=== PATIENT | male | born 1950 | race Caucasian/White ===

== ENCOUNTER 2018-02-15 20:34 | Emergency (ER) | payer MEDICARE, OTHER, SELFPAY ==
[2018-02-15 20:34] VITALS: BP 156/94; PULSE 79; RESP 16; TEMP 36.6; O2SAT 96; BMI 25.7
--- NOTE | 2018-02-15 21:02 | ED.VISSUMM ---
- ER Visit Summary Date of Service: 02/15/18 Chief Complaint: Tripped and fell with forehead and nasal bridge lacerations. History of Present Illness: The patient is a 67 M has medical history of hypertension. Currently on no blood thinner medications. He tripped over the new puppy try to prevent injuring the puppy and hit his head on the counter. No LOC. He did cause a laceration to his forehead and the bridge of his nose. Denies any significant headache or neck pain. No visual changes. No trouble moving his arms or legs. No numbness. Denies other injuries. Physical Examination: Older male no acute distress. Vital signs stable afebrile. H EENT exam is 2-3 inch for a laceration involving skin and subcu tissue. There is dried blood and minimal active bleeding. He also has a laceration to the bridge of his nose. But no gross bony deformity no significant pain. Pupils round reactive light. Extra motions are intact. No dental injury. No malocclusion. Is a small contusion on his right cheek. Scalp is unremarkable. C-spine nontender normal range of motion to his neck. Lungs clear to auscultation bilaterally. Heart regular rate and rhythm no murmur. Chest wall nontender. Abdomen soft nontender. Normal bowel sounds no peritoneal signs. Pelvic girdle intact. He is moving all 4 extremities. Neurovascular intact. Nontender. Back exam nontender. Neurologically is awake alert no focal motor or sensory deficits. GCS of 15. Test Results: None Emergency Department Course and Treatment: Let will be applied to both wounds. Treatment Plan: Then subcu lidocaine was applied to both lacerations. Right forehead laceration approximately 5 cm in length. The skin and subcu tissue. No bony step-off. Washed with saline and irrigated. Also with Shur-Clens. Closed using 6 simple interrupted 5-0 Ethilon sutures. Proper hemostasis wound closure was obtained. Next Nasal bridge laceration is 2 cm. Explored, cleaned with Shur-Clens and washed with saline. Local anesthetic with lidocaine. Closed using 3 simple interrupted 5-0 Ethilon sutures proper hemostasis wound closure obtained patient tolerated procedure well. Post laceration repairs patient remains neurologically intact. They are warned of close head injury precautions. And wound care. Suture removal in 7-10 days. Disposition: Discharge Impression: Tripped and fell over their puppy Acute closed head injury Acute forehead laceration with ER repair of 5-6 cm. Nasal bridge laceration of 2 cm with ER repair This note was generated with [employer] dictation software. It may contain incorrect words, spelling, and punctuation that were not noted in review of the chart prior to signing ED Disposition - Plan for ED Patient: Disposition: Home or Assisted Living Chief Complaint: Laceration Instructions: ED Head Injury Closed, ED Laceration Facial Sutr Tape Referrals: Amari Benz III, MD [Primary Care Provider] - 7 Days for suture removal Additional Instructions: Dental for pain. Return if severe headache, intractable vomiting or not acting himself. Ice to both wounds. Keep the wounds clean. Apply antibiotic ointment daily. Suture removal in 1 week. Watch for any signs of infection.
--- NOTE | 2018-02-15 21:06 | ED.DEP ---
ED Disposition - Plan for ED Patient: Disposition: Home or Assisted Living Chief Complaint: Laceration Instructions: ED Laceration Facial Sutr Tape, ED Head Injury Closed Referrals: Amari Benz III, MD [Primary Care Provider] - 7 Days for suture removal Additional Instructions: Dental for pain. Return if severe headache, intractable vomiting or not acting himself. Ice to both wounds. Keep the wounds clean. Apply antibiotic ointment daily. Suture removal in 1 week. Watch for any signs of infection.
[2018-02-15] MEDS: Lidocaine/Epi/Tetracaine 50 ML 1 APPLIC TOPICAL (21:59)
[2018-02-15] MEDS: Diphth,Pertuss(Acell),Tet Vac 0.5 ML Vial IM (22:42)
[2018-02-15 22:52] VITALS: RESP 16
== END 2018-02-15 23:09 | disposition home or self-care (01) ==
PROVIDERS: Emergency Provider Emergency Medicine; Family Provider Family Medicine; PCP Family Medicine
DX: S01.81XA Laceration without foreign body of other part of head, initial encounter (principal); S01.21XA Laceration without foreign body of nose, initial encounter; W01.0XXA Fall on same level from slipping, tripping and stumbling without subsequent striking against object, initial encounter; Y93.9 Activity, unspecified; Y92.9 Unspecified place or not applicable; I10 Essential (primary) hypertension; Z79.82 Long term (current) use of aspirin; Z79.899 Other long term (current) drug therapy
CPT/HCPCS: 12014; 90471; 90715; 99283

== ENCOUNTER → 2019-05-01 08:58 | Outpatient (CLI) | payer MEDICARE, OTHER, SELFPAY ==
[2019-05-01 10:34] LABS: Anion Gap 9 (5-15); BUN 26 mg/dL (7-18); BUN/Creat Ratio 18.1 RATIO (10-20); Chloride 102 mmol/L (98-107); Creatinine, Serum 1.44 mg/dL (0.70-1.30); EST Glomerular Filtration Rate 52 mL/min (>60); Est Glom Filt Rate - Afr Amer 63 mL/min (>60); Glucose 104 mg/dL (74-106); PSA,Total - Annual Screen 0.61 ng/mL (0.00-4.00); Potassium 3.5 mmol/L (3.5-5.1); Sodium Level 139 mmol/L (136-145)
== END ==
PROVIDERS: Family Provider Family Medicine; PCP Family Medicine; Referring Provider Urology; Visit Provider Urology
DX: Z12.5 Encounter for screening for malignant neoplasm of prostate (principal); N31.9 Neuromuscular dysfunction of bladder, unspecified
CPT/HCPCS: 36415; 80048; 84153; G0103

== ENCOUNTER → 2020-11-21 09:29 | Outpatient (CLI) | payer MEDICARE, OTHER, SELFPAY ==
[2020-11-21 10:05] LABS: Hematocrit 44.3 % (40-54); Mean Corp Hgb Conc 33.9 g/dL (32-36); Mean Corpuscular Hgb 30.5 pg (27.0-32.0); Mean Corpuscular Volume 90.2 fL (80-94); Mean Platelet Vol. 9.8 fl (6.2-12.0); Platelet Count 300 K/mm3 (150-450); RBC Distribution Width CV 12.3 % (11.6-14.6); RBC Distribution Width SD 40.5 fl (35.1-43.9); Red Blood Count 4.91 M/mm3 (4.6-6.2); White Blood Count 5.7 K/mm3 (4.4-11.0)
[2020-11-21 10:37] LABS: Anion Gap 4 (5-15); BUN 23 mg/dL (7-18); BUN/Creat Ratio 18.4 RATIO (10-20); Chloride 107 mmol/L (98-107); Creatinine, Serum 1.25 mg/dL (0.70-1.30); EST Glomerular Filtration Rate 61 mL/min (>60); Est Glom Filt Rate - Afr Amer 74 mL/min (>60); Glucose 67 mg/dL (74-106); PSA,Total- Diagnostic 0.54 ng/mL (0.0-4.0); Potassium 4.1 mmol/L (3.5-5.1); Sodium Level 138 mmol/L (136-145)
== END ==
PROVIDERS: PCP Family Medicine; Referring Provider Urology; Visit Provider Urology
DX: N31.2 Flaccid neuropathic bladder, not elsewhere classified (principal)
CPT/HCPCS: 36415; 80048; 84153; 85027

== ENCOUNTER 2021-01-02 12:47 | Outpatient (RCR) | payer MEDICARE, OTHER, SELFPAY ==
[2021-01-02] MEDS: COVID-19 VACC, MRNA(PFIZER)/PF 30 MCG/0.3 ML SYRINGE IM (18:35)
[2021-01-23] MEDS: COVID-19 VACC, MRNA(PFIZER)/PF 30 MCG/0.3 ML SYRINGE IM (17:51)
== END 2021-01-02 23:59 ==
LOC: IMMUN 12:47
PROVIDERS: PCP Family Medicine; Visit Provider Family Medicine
DX: Z23 Encounter for immunization (principal)
CPT/HCPCS: 0001A; 0002A; 91300

== ENCOUNTER → 2021-09-30 09:43 | Outpatient (CLI) | payer MEDICARE, OTHER, SELFPAY ==
--- NOTE | 2021-09-30 09:45 | RDU_ITS ---
Reason For Study: Renal artery stenosis Right Renal Artery Left Renal Artery Right renal artery ostium Left renal artery ostium 189.8/41.3 215.4/58.5 RSV/EDV. PSV/EDV. Right renal artery proximal Left renal artery proximal PSV/EDV 343.2/69.2 PSV/EDV. 168.3/34.9 . Right renal artery mid 292.1/55.3 Left renal artery mid 122.5/32 PSV/EDV. PSV/EDV . Right renal artery distal Left renal artery distal 56.4/17.1 133.9/46.2 PSV/EDV. PSV/EDV. Right RAR 4.00. Left RAR 2.21. Right Renal Parenchyma Left Renal Parenchyma Upper Pole Medula 29.1/8.1 PSV/EDV. Left upper pole medulla 20.8/6.7 Right upper pole medulla EDR 0.28 . PSV/EDV . Right upper pole medulla R.I. Left upper pole medulla EDR 0.32 . 0.72 . Left upper pole medulla R.I. 0.68 . Upper Danny Cortx 15.9/6.1 PSV/EDV. UP Cortex 11.6/5.5 PSV/EDV. Right upper pole cortex EDR 0.38 . Left upper pole cortex EDR 0.47 . Right upper pole cortex R.I. 0.62 . Left upper pole cortex R.I. 0.53 . Right lower Pole medulla 22/7.3 Left lower Pole medulla 19.6/7.3 PSV/EDV . PSV/EDV . Right lower pole medulla EDR 0.33 . Left lower pole medulla EDR 0.37 . Right lower pole medulla R.I. Left lower pole medulla R.I. 0.63 . 0.67 . Lower Pole Cortx 9.8/4.2 PSV/EDV. Lower Pole Cortex 17.1/6.7 PSV/EDV. Left lower pole cortex EDR 0.43 . Right lower pole cortex EDR 0.39 . Left lower pole cortex R.I. 0.57 . Right lower pole cortex R.I. 0.61 . Left Renal Hilar Right Renal Hilar LT Hilar avg 57.6/17.1 PSV/EDV . Right Hilar avg 46.4/18.5 PSV/EDV. Left hilar acceleration time 60 Right hilar acceleration time 30 m/sec. m/sec. Left Renal Dimensions Right Renal Dimensions Left kidney size 10.37 cm . Right kidney size 11.92 cm . Left cortical dimension 1.56 cm . Right cortical dimension 1.83 cm . Aorta Proximal abdominal aorta 2.51 x 2.51 cm . Proximal abdominal aorta peak systolic velocity is 85.7 cm/sec . Distal abdominal aorta 1.38 x 1.37 cm . Distal abdominal aorta peak systolic velocity is 133.7 cm/sec . VL/Renal Artery Duplex Ultrasound Interpretation Summary Maximal aortic diameter proximally at 2.51 x 2.51 cm Greater than 60% stenosis right renal artery Right renal length maintained at 11.92 cm Less than 60% stenosis left renal artery Left renal length maintained at 10.37 cm Ordering Physician: Wilfred Benz Referring Physician: Madeline Tadeo Performed By: Emily Quiroz RVT
== END ==
PROVIDERS: PCP Registered Nurse; Referring Provider Surgery; Visit Provider Surgery
DX: I70.1 Atherosclerosis of renal artery (principal)
CPT/HCPCS: 93975

== ENCOUNTER → 2021-10-07 09:36 | Outpatient (CLI) | payer MEDICARE, OTHER, SELFPAY ==
--- NOTE | 2021-10-07 09:37 | CDU_ITS ---
Reason For Study: carotid stenosis Rt. Velocities/BP Lt. Velocities/BP Prox CCA 60.4/17.3 cm/sec. Prox CCA 104.7/25.6 cm/sec. Mid CCA 63.0/14.7 cm/sec. Mid CCA 103.6/24.5 cm/sec. Dist CCA 48.6/12.1. cm/sec. Dist CCA 67.3/19.0 cm/sec. Prox ICA 95.6/27.8 cm/sec. Prox ICA 61.9/15.7 cm/sec. Mid ICA 61.9/17.9 cm/sec. Mid ICA 70.6/22.3 cm/sec. Dist ICA 68.4/21.2 cm/sec. Dist ICA 61.9/22.3 cm/sec. Rt. ICA/CCA = 1.5. Lt. ICA/CCA = .7. Prox ECA 57.8/6.9 cm/sec. Prox ECA 79.4/9.1 cm/sec. Rt. Vert. 31.7/10.7 cm/sec. Lt. Vert. 45.4/14.6 cm/sec. Right Extracranial There is heterogeneous, irregular atherosclerotic plaque noted in the right common carotid artery. There is heterogeneous, irregular atherosclerotic plaque noted in the right internal carotid artery. There is intimal thickening but no significant atherosclerotic plaque noted in the right external carotid artery. Antegrade flow is noted in the right vertebral artery. Left Extracranial There is homogeneous, smooth atherosclerotic plaque noted in the left common carotid artery. There is heterogeneous, irregular atherosclerotic plaque noted in the left internal carotid artery. There is heterogeneous, irregular atherosclerotic plaque noted in the left external carotid artery. Antegrade flow is noted in the left vertebral artery. Procedure Carotid Duplex 26125. This is a Carotid Duplex examination using B-mode, color flow and specral Doppler. The exam was diagnostic. Exam performed in department. VL/Carotid Duplex Ultrasound Interpretation Summary Irregular calcific plaque with shadowing at the proximal right internal carotid artery with less than 50% stenosis Less than 50% stenosis right external carotid artery Irregular calcific plaque of the proximal left internal carotid artery with les s than 50% stenosis Less than 50% stenosis left external carotid artery Patent and antegrade vertebrals bilaterally Ordering Physician: Wilfred Benz Performed By: Jhonny So RVT
== END ==
PROVIDERS: PCP Registered Nurse; Referring Provider Surgery; Visit Provider Surgery
DX: I65.23 Occlusion and stenosis of bilateral carotid arteries (principal); R94.39 Abnormal result of other cardiovascular function study
CPT/HCPCS: 93880

== ENCOUNTER 2021-11-07 05:48 | Outpatient (CLI) | payer MEDICARE, OTHER, SELFPAY ==
--- NOTE | 2021-11-07 08:57 | STRESSREP ---
Stress Test Report Pharmacologic myocardial perfusion stress test. 71-year-old man with a history of chest pain. Medications metoprolol amlodipine. Stress protocol: Resting EKG demonstrates normal sinus rhythm with a rate of 53 bpm normal intervals are noted resting blood pressure is 140/98 mmHg. 0.4 mg of regadenoson was infused per usual protocol followed by rapid intravenous saline flush injection continuous EKG monitoring was performed. At rest there were no ST or T wave changes noted to suggest abnormal flow reserve and at peak infusion nonspecific ST changes were noted with did not meet the criteria for ischemia. No clinical angina was noted. The peak blood pressure was 150/86 mmHg. Myocardial perfusion protocol. 11.5 mCi of technetium 99m sestamibi was injected at rest. 0.4 mg of regadenoson was infused per usual protocol. At peak infusion 34.2 mCi of technetium 99m sestamibi was injected stress images were obtained stress and rest images were reconstructed and compared in the short axis vertical long and horizontal long axis. Gated images were also obtained. Perfusion SPECT analysis: Review of the stress images demonstrate normal uptake of tracer noted in all areas of the myocardium. The resting images similarly demonstrate normal uptake of tracer noted in all areas of the myocardium. No areas of reversibility are noted to suggest ischemia and no previous infarct was noted. Gated SPECT analysis: The gated ejection fraction was noted to be 62%. Conclusion: Normal pharmacologic myocardial perfusion stress test. Preserved ejection fraction.
== END 2021-11-07 23:59 | disposition short-term general hospital (02) ==
PROVIDERS: PCP Registered Nurse; Referring Provider Internal Medicine Cardiovascular Disease; Visit Provider Internal Medicine Cardiovascular Disease
DX: Z01.810 Encounter for preprocedural cardiovascular examination (principal); R07.9 Chest pain, unspecified
CPT/HCPCS: 78452; 93017; A9500; A4216; J2785

== ENCOUNTER 2021-11-27 09:34 | Outpatient (CLI) | payer MEDICARE, OTHER, SELFPAY ==
[2021-11-27 11:08] LABS: PSA,Total - Annual Screen 0.67 ng/mL (0.00-4.00)
== END 2021-11-27 23:59 | disposition short-term general hospital (02) ==
LOC: LAB 09:38
PROVIDERS: PCP Registered Nurse; Visit Provider Urology
DX: Z12.5 Encounter for screening for malignant neoplasm of prostate (principal)
CPT/HCPCS: 36415; 84153; G0103

== ENCOUNTER 2021-12-02 07:29 | Day surgery (SDC) | payer MEDICARE, OTHER, SELFPAY ==
[2021-12-02] VITALS (13 sets, daily range): BP systolic 107–145; BP diastolic 66–112; PULSE 59–77; RESP 16–18; TEMP 36.2–37.4; O2SAT 93–100; BMI 24.3
--- NOTE | 2021-12-02 08:02 | HP.PCM_ITS ---
History and Physical Date of Admission: 12/02/21 Intake Visit Reasons: UPDATE H & P Chief Complaint: Update H & P Crossbar Frame Wirer Required: No Is patient in pain?: No Allergies bisoprolol [From Ziac] Allergy (Verified 11/21/21 08:55) Unknown bupropion [From Wellbutrin] Allergy (Verified 11/21/21 08:55) Unknown Medications amlodipine 10 mg PO DAILY 08/16/17 [History Confirmed 11/21/21] acetaminophen 1,000 mg PO Q8 #90 tab 08/26/17 [Rx Confirmed 11/21/21] losartan 100 mg tablet 100 mg PO DAILY tab 10/07/21 [History Confirmed 11/21/21] chlorthalidone 25 mg tablet 25 mg PO DAILY #90 tab 10/17/21 [Rx Confirmed 11/21/21] metoprolol succinate 100 mg tablet,extended release 24 hr 100 mg PO DAILY #90 tab 10/17/21 [Rx Confirmed 11/21/21] PFSH Medical History Abnormal carotid duplex scan ADD (attention deficit disorder) Anxiety Bladder atony Diverticulitis Herpes zoster Moderate persistent asthma Renal artery stenosis Stenosis of right carotid artery Surgical History History of appendectomy History of bowel resection Family History Aunt Breast cancer Mother Hypertension Father Hypertension CVA (cerebral vascular accident) Brother Hypertension CVA (cerebral vascular accident) Sister Hypertension Social History Smoking Status: Former smoker alcohol intake: never substance use type: does not use HPI HPI HPI: ANGELO BRUNSON, is a 71 M who presents to the office today for surgical planning for an attempt at abdominal aortogram with selective renal artery arteriogram and potential right renal artery angioplasty/stenting. He had been having some right arm pain and so cardiology evaluation was performed and he is now felt to be cleared to proceed with procedure. He also had [id number] hypertension. It is of note however that Dr. Prabhjot Gonzalez is initiated him on additional medication and change dosing and now the patient's blood pressure is markedly different. Today he is 135/92 with a heart rate of 69. He notes that hands and feet are much cooler. He does admit that he recognizes that he has had [id number] hypertension for the vast majority of his life. He wonders because his blood pressure now is better controlled whether his hands are feeling cooler. This may indeed be the case. I encouraged the patient that we need to let his body have a chance to equilibrate My previous notes reflect the following Visit Reasons: Carotid Stenosis F/U Test Results [facility] 09/30 Chief Complaint: carotid stenosis f/u test results Crossbar Frame Wirer Required: No Is patient in pain?: No Allergies bisoprolol [From Ziac] Allergy (Verified 06/26/20 07:42) Unknown bupropion [From Wellbutrin] Allergy (Verified 06/26/20 07:42) Unknown Medications albuterol sulfate 1 - 2 puff INHALATION Q6H PRN PRN 08/16/17 [History Confirmed 10/02/21] amlodipine 10 mg PO DAILY 08/16/17 [History Confirmed 10/02/21] acetaminophen 1,000 mg PO Q8 #90 tab 08/26/17 [Rx Confirmed 10/02/21] metoprolol succinate 50 mg tablet,extended release 24 hr 50 mg PO DAILY #90 tab 12/02/17 [Rx Confirmed 10/02/21] PFSH Medical History (Updated 10/02/21 @ 08:[address] Wilfred Benz MD) Abnormal carotid duplex scan ADD (attention deficit disorder) Anxiety Bladder atony Diverticulitis Herpes zoster Moderate persistent asthma Renal artery stenosis Surgical History (Updated 10/02/21 @ 08:51 by Lxey Wednesday) History of appendectomy History of bowel resection Family History (Updated 10/02/21 @ 08:52 by Lexy Wednesday) Aunt Breast cancer Mother Hypertension Father Hypertension CVA (cerebral vascular accident) Brother Hypertension CVA (cerebral vascular accident) Sister Hypertension Social History Smoking Status: Former smoker alcohol intake: never substance use type: does not use HPI HPI HPI: ANGELO BRUNSON, is a 71 M who presents to the office today for surgical follow-up regarding screening colonoscopy and right renal artery stenosis and right carotid stenosis. Records reveal that Dr. Mark Perkins performed upper endoscopy on June 16, 2001 and the biopsies showed normal small bowel. January [address] Yonas Alcala the patient had a sigmoid colectomy showing diverticulosis and diverticulitis with acute and chronic inflammation. By report apparently had a previous renal ultrasound done May 2020 at that time suggesting 60 to 99% stenosis of the right renal artery. Although he did see vascular he did not pursue it. The patient is referred by Madeline Begum CNP and a written copy of my surgical consult recommendations will return to her. Records from [facility] May 01, 2020 reflect renal artery duplex exam. Peak systolic velocity within the right renal artery proximally is 240 cm second flow with end-diastolic velocity of 51. The right renal artery to aortic ratio is 2.5. The right kidney side was 11.9 cm. Maximum flow within the left renal artery proximally is 173 cm/s flow. The left renal artery to aortic ratio is 1.8. The left kidney was 10.9 cm. That was attributed is 60 to 99% stenosis of the right renal artery and 0 to 59% stenosis of the left renal artery On August 26, 2021 at the [facility] the patient had carotid duplex imaging. Maximal velocity within the right internal carotid artery was not elevated nor was it elevated on the left. However the interpretation is 60 to 79% stenosis on the right and 20 to 39% stenosis on the left. Based upon the velocities recorded in the procedure I do not see the indication for that interpretation on the right. On August 25, 2001 he had a screening abdominal ultrasound looking for a potential aortic aneurysm. Maximum aortic diameter 2.1 x 1.9 cm no aneurysm identified. On further discussion with the patient is evident that he remains hypertensive today with a blood pressure of 170/90. He is an avid bicyclist. He states that he just had a cardiac stress test done at the [facility] a week or 2 ago and he states that it was very simple. He has been complaining of a toothache-like pain in the right upper arm. The stress test was obtained in an effort to help decipher the etiology September 30, 2021 Reason For Study: Renal artery stenosis Right Renal Artery Left Renal Artery Right renal artery ostium Left renal artery ostium 189.8/41.3 215.4/58.5 RSV/EDV. PSV/EDV. Right renal artery proximal Left renal artery proximal PSV/EDV 343.2/69.2 PSV/EDV. 168.3/34.9 . Right renal artery mid 292.1/55.3 Left renal artery mid 122.5/32 PSV/EDV. PSV/EDV . Right renal artery distal Left renal artery distal 56.4/17.1 133.9/46.2 PSV/EDV. PSV/EDV. Right RAR 4.00. Left RAR 2.21. Right Renal Parenchyma Left Renal Parenchyma Upper Pole Medula 29.1/8.1 PSV/EDV. Left upper pole medulla 20.8/6.7 Right upper pole medulla EDR 0.28 . PSV/EDV . Right upper pole medulla R.I. Left upper pole medulla EDR 0.32 . 0.72 . Left upper pole medulla R.I. 0.68 . Upper Danny Cortx 15.9/6.1 PSV/EDV. UP Cortex 11.6/5.5 PSV/EDV. Right upper pole cortex EDR 0.38 . Left upper pole cortex EDR 0.47 . Right upper pole cortex R.I. 0.62 . Left upper pole cortex R.I. 0.53 . Right lower Pole medulla 22/7.3 Left lower Pole medulla 19.6/7.3 PSV/EDV . PSV/EDV . Right lower pole medulla EDR 0.33 . Left lower pole medulla EDR 0.37 . Right lower pole medulla R.I. Left lower pole medulla R.I. 0.63 . 0.67 . Lower Pole Cortx 9.8/4.2 PSV/EDV. Lower Pole Cortex 17.1/6.7 PSV/EDV. Left lower pole cortex EDR 0.43 . Right lower pole cortex EDR 0.39 . Left lower pole cortex R.I. 0.57 . Right lower pole cortex R.I. 0.61 . Left Renal Hilar Right Renal Hilar LT Hilar avg 57.6/17.1 PSV/EDV . Right Hilar avg 46.4/18.5 PSV/EDV. Left hilar acceleration time 60 Right hilar acceleration time 30 m/sec. m/sec. Left Renal Dimensions Right Renal Dimensions Left kidney size 10.37 cm . Right kidney size 11.92 cm . Left cortical dimension 1.56 cm . Right cortical dimension 1.83 cm . Aorta Proximal abdominal aorta 2.51 x 2.51 cm . Proximal abdominal aorta peak systolic velocity is 85.7 cm/sec . Distal abdominal aorta 1.38 x 1.37 cm . Distal abdominal aorta peak systolic velocity is 133.7 cm/sec . VL/Renal Artery Duplex Ultrasound Interpretation Summary Maximal aortic diameter proximally at 2.51 x 2.51 cm Greater than 60% stenosis right renal artery Right renal length maintained at 11.92 cm Less than 60% stenosis left renal artery Left renal length maintained at 10.37 cm Ordering Physician: Wilfred Benz Referring Physician: Madeline Tadeo Performed By: Emily Quiroz RVT 09/30/21 1450Date Wilfred Benz MD ROS General General: Yes fatigue; No weight change, appetite, colon cancer, breast cancer or weakness HEENT HEENT: No difficulty swallowing, eye injury, eye surgery, swollen glands or hoarseness Endo Endocrine: No thyroid disease, diabetes mellitus, thyroid cancer, Hair loss, heat intolerance or cold intolerance Skin Skin: No rash or changing moles Musc Musculoskeletal: No back problems, arthritis, rheumatoid arthritis, gout or joint pain Cardio Cardiovascular: Yes high blood pressure; No murmur, pacemaker, heart disease, atrial fibrillation, heart attack, heart stent, palpitations, shortness of breat with exertion or chest pain Psych Psychiatric: No depression, anxiety or hearing voices Resp Respiratory: No shortness of breath, No sleep apnea, Yes cough, No COPD, No asthma, No emphysema and No wheezing Gastro Gastrointestinal: No abdominal pain, No nausea or vomiting, No diarrhea, No constipation, No blood in stool, No acid reflux, No hemorrhoids, No ulcers, No gallbladder problem and No black,tarry stools Wilfrid Hematologic: No blood thinners, No blood disorders, No bleeding, No anemia and No blood clots Neuro Neurologic: No system reviewed and no additional complaints, except as documented, No as per HPI, No abnormal gait, No abnormal hearing, No abnormal movements, No abnormal speech, No behavioral changes, No burning sensations, No confusion, No convulsions, No disequilibrium, No dizziness, No localized weakness, No frequent falls, No headache(s), No lack of coordination, No loss of vision, No memory loss, No numbness, No other visual disturbances, No radicular pain, No restless legs, No sensory deficit, No syncope, No tingling, No tremor(s), No weakness and No other Exam Const General: cooperative, healthy appearing, comfortable and no acute distress Nutritional Appearance: average body habitus Orientation: alert and awake [facility] Head: normal to inspection Neck Neck: normal visual inspection Chest Chest palpation & inspection: normal inspection of the chest Resp Effort & Inspection: normal respiratory effort Auscultation: clear to auscultation bilaterally Cardio Rate: regular rate Rhythm: regular rhythm GI Palpation: soft and no hepatosplenomegaly Skin General: no rashes or lesions noted Neuro General: patient alert and patient awake Extrem General: no calf tenderness Psych Appearance: grossly normal Assessment and Plan Assessment and Plan (1) Renal artery stenosis: Status: Acute (2) Screening for intestinal cancer: Status: Acute (3) Malignant hypertension: Status: Acute Plan - Dr. Wilfred Benz MD: Complex set issues. Symptoms 1 is the colonoscopy for screening. The patient requested I proceed with that for him. He is aware of technique, benefit, risk and alternatives we will schedule procedure at his discretion The carotid artery stenosis is more confusing. The velocities on the baseline study correlate with less than 50% stenosis and yet the interpretation states greater than 50% stenosis of the right carotid. I believe the best way to solve this issue is to repeat the carotid duplex imaging Finding the patient has had long-term [id number] hypertension. He is currently on amlodipine and metoprolol and hydrochlorothiazide. I would like to talk to Madeline Begum CNP to help work out a long-term treatment plan. In detail I have discussed with the patient the potential for a aortogram with selective renal artery studies and potential right renal artery endovascular angioplasty and stenting. I have cautioned him however that there are no guarantees that this resolves his hypertension problem. Based upon family history that he provides I have concerned that his hypertension is based upon inherited features. If the patient has truly met maximum medical care that I would recommend proceeding with diagnostic and therapeutic renal artery intervention. If the patient has not met maximal medical treatment then I have encouraged him to allow his care providers to proceed with increasing his medications as indicated to try to achieve control. The patient does admit that he has been frustrated with taking medications and actually has been trying to get his providers to decrease the medications that he has been taking. I have advised him that this should not be the approach that he takes and that clearly his hypertension has been and remains a clinically significant problem. I appreciate the opportunity of assisting with the surgical care. Copy:DIONI Manzo M.D., F.A.C.S. ROS General General: Yes fatigue; No weight change, appetite, colon cancer, breast cancer or weakness HEENT HEENT: No difficulty swallowing, eye injury, eye surgery, swollen glands or hoarseness Endo Endocrine: No thyroid disease, diabetes mellitus, thyroid cancer, Hair loss, heat intolerance or cold intolerance Skin Skin: No rash or changing moles Musc Musculoskeletal: No back problems, arthritis, rheumatoid arthritis, gout or joint pain Cardio Cardiovascular: Yes high blood pressure; No murmur, pacemaker, heart disease, atrial fibrillation, heart attack, heart stent, palpitations, shortness of breat with exertion or chest pain Psych Psychiatric: No depression, anxiety or hearing voices Resp Respiratory: No shortness of breath, No sleep apnea, Yes cough, No COPD, No asthma, No emphysema and No wheezing Gastro Gastrointestinal: No abdominal pain, No nausea or vomiting, No diarrhea, No constipation, No blood in stool, No acid reflux, No hemorrhoids, No ulcers, No gallbladder problem and No black,tarry stools Wilfrid Hematologic: No blood thinners, No blood disorders, No bleeding, No anemia and No blood clots Neuro Neurologic: No system reviewed and no additional complaints, except as documented, No as per HPI, No abnormal gait, No abnormal hearing, No abnormal movements, No abnormal speech, No behavioral changes, No burning sensations, No confusion, No convulsions, No disequilibrium, No dizziness, No localized weakness, No frequent falls, No headache(s), No lack of coordination, No loss of vision, No memory loss, No numbness, No other visual disturbances, No radicular pain, No restless legs, No sensory deficit, No syncope, No tingling, No tremor(s), No weakness and No other Exam Const General: cooperative, healthy appearing and comfortable Nutritional Appearance: average body habitus Orientation: alert and awake [facility] Head: normal to inspection Resp Effort & Inspection: normal respiratory effort Auscultation: clear to auscultation bilaterally Cardio Rate: regular rate Rhythm: regular rhythm GI Palpation: soft Auscultation: normal bowel sounds Musc Cervical Spine: normal cervical lordosis Skin General: no rashes or lesions noted Neuro General: patient alert and patient awake Extrem General: no calf tenderness Psych Appearance: grossly normal Assessment and Plan Assessment and Plan (1) Malignant hypertension: Status: Acute (2) Renal artery stenosis: Status: Acute Comment: October 03, 2021 I have information from [facility]. On September 15, 2021 the patient is stress test. Ejection fraction was 61%. It was negative for acute ischemia. Grade 1 left ventricular diastolic dysfunction. The right ventricle is normal in size and function. No significant valvular abnormality. The test however was terminated due to accelerated hypertension. The stress test was done because of an abnormal EKG showing sinus bradycardia with first-degree AV block Wilfred Benz M.D., F.A.C.S. October 06, 2021. I personally phone call contacted the patient. I described that I been in touch with KOTA Swenson regarding the patient's antihypertensives. A diuretic could be offered but it is not felt that it is likely to place the patient under optimum control. I recommended the patient reconsider a abdominal aortogram with selected renal artery imaging and careful inspection of the right renal artery for possible angioplasty and stenting. The patient has been having right arm pain particularly with exertion. He has an upcoming appointment with light rail transit operator Dr. Prabhjot Gonzalez. That will be scheduled in November. We will see if we can expedite that for him so we can evaluate the right arm discomfort in addition to scheduling and proceeding with his anticipated right renal artery stenting in hopes of better hypertension management. Wilfred Benz M.D., F.A.C.S. (3) Screening for intestinal cancer: Status: Acute Plan - Dr. Wilfred Benz MD: Repeat carotid duplex imaging was performed on October 07, 2021 at the [facility] and it failed to demonstrate any hemodynamically significant stenosis of either carotid artery. Less than 50% stenosis bilateral internal carotid arteries. The previous interpretation from the [facility] therefore likely an error. Patient Instructions: I recommended the patient now that his blood pressure is better controlled that we proceed with a screening colonoscopy with possible biopsy or polypectomy as indicated. He is aware of the technique, benefit, risk and alternatives. He has had an opportunity to ask and have questions answered. Barring any difficulties with that I recommend to him that we perform an aortogram with anticipated selective renal artery studies. Very careful attention to the right renal artery will be pursued. The patient may be a candidate for renal artery angioplasty and stenting in hopes of assisting with better blood pressure control as he now is on 4 different medications. No guarantees of success have been offered. He is aware of technique, benefit, risk, alternatives. I would anticipate that post procedure he would need to be placed on clopidogrel therapy for a period of time if a stent is indeed deployed. Copy: Dr. Prabhjot Gonzalez and Madeline Tadeo NP, MUCKING MACHINE OPERATOR-C Wilfred Benz M.D., F.A.C.S. I have re-examined the patient. There are no clinical changes since date of exam.
[2021-12-02] MEDS: Lactated Ringers 1,000 ML 15 ML IV (08:03)
[2021-12-02] MEDS: Midazolam 5 MG/ML Syringe (08:17)
--- NOTE | 2021-12-02 08:35 | OP.COLON_ITS ---
Patient Name: Enmanuel Deleon Procedure Date: 12/02/2021 8:09 AM Date of : 1950 Age: 71 Procedure: Colonoscopy Indications: Screening for colorectal malignant neoplasm Providers: Wilfred Benz MD Medicines: Midazolam 4.5 mg IV, Meperidine 100 mg IV Patient Profile: Last Colonoscopy: date unknown. Complications: No immediate complications. Procedure: Pre-Anesthesia Assessment: - Prior to the procedure, a History and Physical was performed, and patient medications and allergies were reviewed. The patient's tolerance of previous anesthesia was also reviewed. The risks and benefits of the procedure and the sedation options and risks were discussed with the patient. All questions were answered, and informed consent was obtained. Prior Anticoagulants: The patient has taken no previous anticoagulant or antiplatelet agents. ASA Grade Assessment: II - A patient with mild systemic disease. After reviewing the risks and benefits, the patient was deemed in satisfactory condition to undergo the procedure. After I obtained informed consent, the scope was passed under direct vision. Throughout the procedure, the patient's blood pressure, pulse, and oxygen saturations were monitored continuously. The colonoscope was introduced through the anus and advanced to the cecum, identified by appendiceal orifice and ileocecal valve. The colonoscopy was performed without difficulty. The patient tolerated the procedure well. The quality of the bowel preparation was good. The ileocecal valve and the appendiceal orifice were photographed. Moderate Sedation: Moderate (conscious) sedation was personally administered by the endoscopist. The following parameters were monitored: oxygen saturation, heart rate, blood pressure, and response to care. Total physician intraservice time was 15 minutes. Scope In: 8:18:52 AM Scope Withdrawal Time 0 hours 7 minutes 17 seconds Scope Out: 8:30:09 AM Total Procedure Duration Time 0 hours 11 minutes 17 seconds Findings: The digital rectal exam findings include non-thrombosed external hemorrhoids, non-thrombosed internal hemorrhoids, internal hemorrhoids that prolapse with straining, but spontaneously regress to the resting position (Grade II) and enlarged prostate. Scattered diverticula were found in the sigmoid colon. There was evidence of a prior end-to-end colo-colonic anastomosis in the distal sigmoid colon. This was patent and was characterized by healthy appearing mucosa. The exam was otherwise without abnormality. Impression: - Non-thrombosed external hemorrhoids, non-thrombosed internal hemorrhoids, internal hemorrhoids that prolapse with straining, but spontaneously regress to the resting position (Grade II) and enlarged prostate found on digital rectal exam. - Diverticulosis in the sigmoid colon. - Patent end-to-end colo-colonic anastomosis, characterized by healthy appearing mucosa. - The examination was otherwise normal. - No specimens collected. Recommendation: - Discharge patient to home. - Resume previous diet. - Continue present medications. - Repeat colonoscopy is not recommended due to current age (66 years or older) for screening purposes. Procedure Code(s): --- Professional --- 82036, Colonoscopy, flexible; diagnostic, including collection of specimen(s) by brushing or washing, when performed (separate procedure) 20517, 59, Moderate sedation services provided by the same physician or other qualified health patient care provider performing the diagnostic or therapeutic service that the sedation supports, requiring the presence of an independent trained observer to assist in the monitoring of the patient's level of consciousness and physiological status; initial 15 minutes of intraservice time, patient age 5 years or older Diagnosis Code(s): --- Professional --- Z12.11, Encounter for screening for malignant neoplasm of colon K64.1, Second degree hemorrhoids K64.4, Residual hemorrhoidal skin tags Z98.0, Intestinal bypass and anastomosis status N40.0, Benign prostatic hyperplasia without lower urinary tract symptoms K57.30, Diverticulosis of large intestine without perforation or abscess without bleeding CPT copyright 2017 [employer]. All rights reserved. The codes documented in this report are preliminary and upon business technology analyst review may be revised to meet current compliance requirements. Wilfred Benz MD 12/02/2021 8:34:34 AM This report has been signed electronically. Number of Addenda: 0 Note Initiated On: 12/02/2021 8:09 AM
--- NOTE | 2021-12-02 08:35 | OP.CCLET_ITS ---
12/02/2021 Madeline Tadeo Re : Colonoscopy procedure for Enmanuel Deleon Dear Carlyle This procedure was performed on Thursday, December 02, 2021. My impressions and recommendations are as follows: Impressions : - Non-thrombosed external hemorrhoids, non-thrombosed internal hemorrhoids, internal hemorrhoids that prolapse with straining, but spontaneously regress to the resting position (Grade II) and enlarged prostate found on digital rectal exam. - Diverticulosis in the sigmoid colon. - Patent end-to-end colo-colonic anastomosis, characterized by healthy appearing mucosa. - The examination was otherwise normal. - No specimens collected. Recommendations : - Discharge patient to home. - Resume previous diet. - Continue present medications. - Repeat colonoscopy is not recommended due to current age (66 years or older) for screening purposes. My findings are described in the full procedure note, which is enclosed. If I can be of further assistance, please feel free to contact me at Doctor phone number(s): Work: . Sincerely, Wilfred Benz MD 12/02/2021 8:34:34 AM This report has been signed electronically.
== END 2021-12-02 23:59 | disposition home or self-care (01) ==
LOC: EN 07:32 → AC 07:33
PROVIDERS: PCP Registered Nurse; Referring Provider Registered Nurse; Visit Provider Surgery
PROC: 0DJD8ZZ Inspection of Lower Intestinal Tract, Via Natural or Artificial Opening Endoscopic (ICD-10-PCS; CPT 45378; principal; 2021-12-02 08:25)
DX: Z12.11 Encounter for screening for malignant neoplasm of colon (principal); I70.1 Atherosclerosis of renal artery; K64.1 Second degree hemorrhoids; K64.4 Residual hemorrhoidal skin tags; K57.30 Diverticulosis of large intestine without perforation or abscess without bleeding; N40.0 Benign prostatic hyperplasia without lower urinary tract symptoms; I10 Essential (primary) hypertension; Z79.899 Other long term (current) drug therapy; Z87.891 Personal history of nicotine dependence
CPT/HCPCS: 45378; 99152; 99153; J7120

== ENCOUNTER 2021-12-10 14:04 | Observation (INO) | payer MEDICARE, OTHER, SELFPAY ==
[2021-12-04 10:49] LABS: Hematocrit 43.5 % (40-54); Hemoglobin 14.7 g/dL (13.0-16.5); Mean Corp Hgb Conc 33.8 g/dL (32-36); Mean Corpuscular Hgb 30.6 pg (27.0-32.0); Mean Corpuscular Volume 90.4 fL (80-94); Mean Platelet Vol. 9.7 fl (6.2-12.0); Platelet Count 274 K/mm3 (150-450); RBC Distribution Width CV 12.8 % (11.6-14.6); Red Blood Count 4.81 M/mm3 (4.6-6.2); White Blood Count 6.6 K/mm3 (4.4-11.0)
[2021-12-04 11:06] LABS: Anion Gap 4 (5-15); BUN 33 mg/dL (7-18); BUN/Creat Ratio 18.6 RATIO (10-20); Calcium,Total 9.5 mg/dL (8.5-10.1); Chloride 101 mmol/L (98-107); Creatinine, Serum 1.77 mg/dL (0.70-1.30); EST Glomerular Filtration Rate 41 mL/min (>60); Est Glom Filt Rate - Afr Amer 49 mL/min (>60); Glucose 98 mg/dL (74-106); Potassium 3.7 mmol/L (3.5-5.1); Sodium Level 138 mmol/L (136-145)
[2021-12-10] VITALS (7 sets, daily range): BP systolic 99–124; BP diastolic 56–70; PULSE 50–56; RESP 16–18; TEMP 36.2–36.9; O2SAT 97–98; BMI 24.4
--- NOTE | 2021-12-10 08:39 | HP.PCM_ITS ---
History and Physical Date of Admission: 12/10/21 Allergies bisoprolol [From Ziac] Allergy (Verified 11/21/21 08:55) Unknown bupropion [From Wellbutrin] Allergy (Verified 11/21/21 08:55) Unknown Medications amlodipine 10 mg PO DAILY 08/16/17 [History Confirmed 11/21/21] acetaminophen 1,000 mg PO Q8 #90 tab 08/26/17 [Rx Confirmed 11/21/21] losartan 100 mg tablet 100 mg PO DAILY tab 10/07/21 [History Confirmed 11/21/21] chlorthalidone 25 mg tablet 25 mg PO DAILY #90 tab 10/17/21 [Rx Confirmed 11/21/21] metoprolol succinate 100 mg tablet,extended release 24 hr 100 mg PO DAILY #90 tab 10/17/21 [Rx Confirmed 11/21/21] PFS Medical History Abnormal carotid duplex scan ADD (attention deficit disorder) Anxiety Bladder atony Diverticulitis Herpes zoster Moderate persistent asthma Renal artery stenosis Stenosis of right carotid artery Surgical History History of appendectomy History of bowel resection Family History Aunt Breast cancer Mother Hypertension Father Hypertension CVA (cerebral vascular accident) Brother Hypertension CVA (cerebral vascular accident) Sister Hypertension Social History Smoking Status: Former smoker alcohol intake: never substance use type: does not use HPI HPI HPI: ANGELO BRUNSON, is a 71 M who presents to the office today for surgical planning for an attempt at abdominal aortogram with selective renal artery art eriogram and potential right renal artery angioplasty/stenting. He had been having some right arm pain and so cardiology evaluation was performed and he is now felt to be cleared to proceed with procedure. He also had [id number] hypertension. It is of note however that Dr. Prabhjot Gonzalez is initiated him on additional medication and change dosing and now the patient's blood pressure is markedly different. Today he is 135/92 with a heart rate of 69. He notes that hands and feet are much cooler. He does admit that he recognizes that he has had [id number] hypertension for the vast majority of his life. He wonders because his blood pressure now is better controlled whether his hands are feeling cooler. This may indeed be the case. I encouraged the patient that we need to let his body have a chance to equilibrate My previous notes reflect the following Visit Reasons: Carotid Stenosis F/U Test Results [facility] 09/30 Chief Complaint: carotid stenosis f/u test results [employer] Required: No Is patient in pain?: No Allergies bisoprolol [From Ziac] Allergy (Verified 06/26/20 07:42) Unknown bupropion [From Wellbutrin] Allergy (Verified 06/26/20 07:42) Unknown Medications albuterol sulfate 1 - 2 puff INHALATION Q6H PRN PRN 08/16/17 [History Confirmed 10/02/21] amlodipine 10 mg PO DAILY 08/16/17 [History Confirmed 10/02/21] acetaminophen 1,000 mg PO Q8 #90 tab 08/26/17 [Rx Confirmed 10/02/21] metoprolol succinate 50 mg tablet,extended release 24 hr 50 mg PO DAILY #90 tab 12/02/17 [Rx Confirmed 10/02/21] [facility] Medical History (Updated 10/02/21 @ 08:[address] Wilfred Benz MD) Abnormal carotid duplex scan ADD (attention deficit disorder) Anxiety Bladder atony Diverticulitis Herpes zoster Moderate persistent asthma Renal artery stenosis Surgical History (Updated 10/02/21 @ 08:51 by Lexy Wednesday) History of appendectomy History of bowel resection Family History (Updated 10/02/21 @ 08:52 by Lexy Wednesday) Aunt Breast cancer Mother Hypertension Father Hypertension CVA (cerebral vascular accident) Brother Hypertension CVA (cerebral vascular accident) Sister Hypertension Social History Smoking Status: Former smoker alcohol intake: never substance use type: does not use HPI HPI HPI: ANGELO BRUNSON, is a 71 M who presents to the office today for surgical follow-up regarding screening colonoscopy and right renal artery stenosis and right carotid stenosis. Records reveal that Dr. Mark Perkins performed upper endoscopy on June 16, 2001 and the biopsies showed normal small bowel. January [address] Yonas Alcala the patient had a sigmoid colectomy showing diverticulosis and diverticulitis with acute and chronic inflammation. By report apparently had a previous renal ultrasound done May 2020 at that time suggesting 60 to 99% stenosis of the right renal artery. Although he did see vascular he did not pursue it. The patient is referred by Madeline Begum CNP and a written copy of my surgical consult recommendations will return to her. Records from [facility] May 01, 2020 reflect renal artery duplex exam. Peak systolic velocity within the right renal artery proximally is 240 cm second flow with end-diastolic velocity of 51. The right renal artery to aortic ratio is 2.5. The right kidney side was 11.9 cm. Maximum flow within the left renal artery proximally is 173 cm/s flow. The left renal artery to aortic ratio is 1.8. The left kidney was 10.9 cm. That was attributed is 60 to 99% stenosis of the right renal artery and 0 to 59% stenosis of the left renal artery On August 26, 2021 at the [facility] the patient had carotid duplex imaging. Maximal velocity within the right internal carotid artery was not elevated nor was it elevated on the left. However the interpretation is 60 to 79% stenosis on the right and 20 to 39% stenosis on the left. Based upon the velocities recorded in the procedure I do not see the indication for that interpretation on the right. On August 25, 2001 he had a screening abdominal ultrasound looking for a potential aortic aneurysm. Maximum aortic diameter 2.1 x 1.9 cm no aneurysm identified. On further discussion with the patient is evident that he remains hypertensive today with a blood pressure of 170/90. He is an avid bicyclist. He states that he just had a cardiac stress test done at the [facility] a week or 2 ago and he states that it was very simple. He has been complaining of a toothache-like pain in the right upper arm. The stress test was obtained in an effort to help decipher the etiology September 30, 2021 Reason For Study: Renal artery stenosis Right Renal Artery Left Renal Artery Right renal artery ostium Left renal artery ostium 189.8/41.3 215.4/58.5 RSV/EDV. PSV/EDV. Right renal artery proximal Left renal artery proximal PSV/EDV 343.2/69.2 PSV/EDV. 168.3/34.9 . Right renal artery mid 292.1/55.3 Left renal artery mid 122.5/32 PSV/EDV. PSV/EDV . Right renal artery distal Left renal artery distal 56.4/17.1 133.9/46.2 PSV/EDV. PSV/EDV. Right RAR 4.00. Left RAR 2.21. Right Renal Parenchyma Left Renal Parenchyma Upper Pole Medula 29.1/8.1 PSV/EDV. Left upper pole medulla 20.8/6.7 Right upper pole medulla EDR 0.28 . PSV/EDV . Right upper pole medulla R.I. Left upper pole medulla EDR 0.32 . 0.72 . Left upper pole medulla R.I. 0.68 . Upper Danny Cortx 15.9/6.1 PSV/EDV. UP Cortex 11.6/5.5 PSV/EDV. Right upper pole cortex EDR 0.38 . Left upper pole cortex EDR 0.47 . Right upper pole cortex R.I. 0.62 . Left upper pole cortex R.I. 0.53 . Right lower Pole medulla 22/7.3 Left lower Pole medulla 19.6/7.3 PSV/EDV . PSV/EDV . Right lower pole medulla EDR 0.33 . Left lower pole medulla EDR 0.37 . Right lower pole medulla R.I. Left lower pole medulla R.I. 0.63 . 0.67 . Lower Pole Cortx 9.8/4.2 PSV/EDV. Lower Pole Cortex 17.1/6.7 PSV/EDV. Left lower pole cortex EDR 0.43 . Right lower pole cortex EDR 0.39 . Left lower pole cortex R.I. 0.57 . Right lower pole cortex R.I. 0.61 . Left Renal Hilar Right Renal Hilar LT Hilar avg 57.6/17.1 PSV/EDV . Right Hilar avg 46.4/18.5 PSV/EDV. Left hilar acceleration time 60 Right hilar acceleration time 30 m/sec. m/sec. Left Renal Dimensions Right Renal Dimensions Left kidney size 10.37 cm . Right kidney size 11.92 cm . Left cortical dimension 1.56 cm . Right cortical dimension 1.83 cm . Aorta Proximal abdominal aorta 2.51 x 2.51 cm . Proximal abdominal aorta peak systolic velocity is 85.7 cm/sec . Distal abdominal aorta 1.38 x 1.37 cm . Distal abdominal aorta peak systolic velocity is 133.7 cm/sec . VL/Renal Artery Duplex Ultrasound Interpretation Summary Maximal aortic diameter proximally at 2.51 x 2.51 cm Greater than 60% stenosis right renal artery Right renal length maintained at 11.92 cm Less than 60% stenosis left renal artery Left renal length maintained at 10.37 cm Ordering Physician: Wilfred Benz Referring Physician: Madeline Tadeo Performed By: Emily Quiroz RVJesús 09/30/21 1450Date Wilfred Benz MD ROS General General: Yes fatigue; No weight change, appetite, colon cancer, breast cancer or weakness HEENT HEENT: No difficulty swallowing, eye injury, eye surgery, swollen glands or hoarseness Endo Endocrine: No thyroid disease, diabetes mellitus, thyroid cancer, Hair loss, heat intolerance or cold intolerance Skin Skin: No rash or changing moles Musc Musculoskeletal: No back problems, arthritis, rheumatoid arthritis, gout or joint pain Cardio Cardiovascular: Yes high blood pressure; No murmur, pacemaker, heart disease, atrial fibrillation, heart attack, heart stent, palpitations, shortness of breat with exertion or chest pain Psych Psychiatric: No depression, anxiety or hearing voices Resp Respiratory: No shortness of breath, No sleep apnea, Yes cough, No COPD, No asthma, No emphysema and No wheezing Gastro Gastrointestinal: No abdominal pain, No nausea or vomiting, No diarrhea, No constipation, No blood in stool, No acid reflux, No hemorrhoids, No ulcers, No gallbladder problem and No black,tarry stools Wilfrid Hematologic: No blood thinners, No blood disorders, No bleeding, No anemia and No blood clots Neuro Neurologic: No system reviewed and no additional complaints, except as documented, No as per HPI, No abnormal gait, No abnormal hearing, No abnormal movements, No abnormal speech, No behavioral changes, No burning sensations, No confusion, No convulsions, No disequilibrium, No dizziness, No localized weakness, No frequent falls, No headache(s), No lack of coordination, No loss of vision, No memory loss, No numbness, No other visual disturbances, No radicular pain, No restless legs, No sensory deficit, No syncope, No tingling, No tremor(s), No weakness and No other Exam Const General: cooperative, healthy appearing, comfortable and no acute distress Nutritional Appearance: average body habitus Orientation: alert and awake [facility] Head: normal to inspection Neck Neck: normal visual inspection Chest Chest palpation & inspection: normal inspection of the chest Resp Effort & Inspection: normal respiratory effort Auscultation: clear to auscultation bilaterally Cardio Rate: regular rate Rhythm: regular rhythm GI Palpation: soft and no hepatosplenomegaly Skin General: no rashes or lesions noted Neuro General: patient alert and patient awake Extrem General: no calf tenderness Psych Appearance: grossly normal Assessment and Plan Assessment and Plan (1) Renal artery stenosis: Status: Acute (2) Screening for intestinal cancer: Status: Acute (3) Malignant hypertension: Status: Acute Plan - Dr. Wilfred Benz MD: Complex set issues. Symptoms 1 is the colonoscopy for screening. The patient requested I proceed with that for him. He is aware of technique, benefit, risk and alternatives we will schedule procedure at his discretion The carotid artery stenosis is more confusing. The velocities on the baseline study correlate with less than 50% stenosis and yet the interpretation states greater than 50% stenosis of the right carotid. I believe the best way to solve this issue is to repeat the carotid duplex imaging Finding the patient has had long-term [id number] hypertension. He is currently on amlodipine and metoprolol and hydrochlorothiazide. I would like to talk to Madeline Begum CNP to help work out a long-term treatment plan. In detail I have discussed with the patient the potential for a aortogram with selective renal artery studies and potential right renal artery endovascular angioplasty and stenting. I have cautioned him however that there are no guarantees that this resolves his hypertension problem. Based upon family history that he provides I have concerned that his hypertension is based upon inherited features. If the patient has truly met maximum medical care that I would recommend proceeding with diagnostic and therapeutic renal artery intervention. If the patient has not met maximal medical treatment then I have encouraged him to allow his care providers to proceed with increasing his medications as indicated to try to achieve control. The patient does admit that he has been frustrated with taking medications and actually has been trying to get his providers to decrease the medications that he has been taking. I have advised him that this should not be the approach that he takes and that clearly his hypertension has been and remains a clinically significant problem. I appreciate the opportunity of assisting with the surgical care. Copy:DIONI Manzo M.D., F.A.C.S. ROS General General: Yes fatigue; No weight change, appetite, colon cancer, breast cancer or weakness HEENT HEENT: No difficulty swallowing, eye injury, eye surgery, swollen glands or hoarseness Endo Endocrine: No thyroid disease, diabetes mellitus, thyroid cancer, Hair loss, heat intolerance or cold intolerance Skin Skin: No rash or changing moles Musc Musculoskeletal: No back problems, arthritis, rheumatoid arthritis, gout or joint pain Cardio Cardiovascular: Yes high blood pressure; No murmur, pacemaker, heart disease, atrial fibrillation, heart attack, heart stent, palpitations, shortness of breat with exertion or chest pain Psych Psychiatric: No depression, anxiety or hearing voices Resp Respiratory: No shortness of breath, No sleep apnea, Yes cough, No COPD, No asthma, No emphysema and No wheezing Gastro Gastrointestinal: No abdominal pain, No nausea or vomiting, No diarrhea, No constipation, No blood in stool, No acid reflux, No hemorrhoids, No ulcers, No gallbladder problem and No black,tarry stools Wilfrid Hematologic: No blood thinners, No blood disorders, No bleeding, No anemia and No blood clots Neuro Neurologic: No system reviewed and no additional complaints, except as docume nted, No as per HPI, No abnormal gait, No abnormal hearing, No abnormal movements, No abnormal speech, No behavioral changes, No burning sensations, No confusion, No convulsions, No disequilibrium, No dizziness, No localized weakness, No frequent falls, No headache(s), No lack of coordination, No loss of vision, No memory loss, No numbness, No other visual disturbances, No radicular pain, No restless legs, No sensory deficit, No syncope, No tingling, No tremor(s), No weakness and No other Exam Const General: cooperative, healthy appearing and comfortable Nutritional Appearance: average body habitus Orientation: alert and awake [facility] Head: normal to inspection Resp Effort & Inspection: normal respiratory effort Auscultation: clear to auscultation bilaterally Cardio Rate: regular rate Rhythm: regular rhythm GI Palpation: soft Auscultation: normal bowel sounds Musc Cervical Spine: normal cervical lordosis Skin General: no rashes or lesions noted Neuro General: patient alert and patient awake Extrem General: no calf tenderness Psych Appearance: grossly normal Assessment and Plan Assessment and Plan (1) Malignant hypertension: Status: Acute (2) Renal artery stenosis: Status: Acute Comment: October 03, 2021 I have information from [facility]. On September 15, 2021 the patient is stress test. Ejection fraction was 61%. It was negative for acute ischemia. Grade 1 left ventricular diastolic dysfunction. The right ventricle is normal in size and function. No significant valvular abnormality. The test however was terminated due to accelerated hypertension. The stress test was done because of an abnormal EKG showing sinus bradycardia with first-degree AV block Wilfred Benz M.D., F.A.C.S. October 06, 2021. I personally phone call contacted the patient. I described that I been in touch with KOTA Swenson regarding the patient's antihypertensives. A diuretic could be offered but it is not felt that it is likely to place the patient under optimum control. I recommended the patient reconsider a abdominal aortogram with selected renal artery imaging and careful inspection of the right renal artery for possible angioplasty and stenting. The patient has been having right arm pain particularly with exertion. He has an upcoming appointment with varnish finisher Dr. Prabhjot Gonzalez. That will be scheduled in November. We will see if we can expedite that for him so we can evaluate the right arm discomfort in addition to scheduling and proceeding with his anticipated right renal artery stenting in hopes of better hypertension management. Wilfred Benz M.D., F.A.C.S. (3) Screening for intestinal cancer: Status: Acute Plan - Dr. Wilfred Benz MD: Repeat carotid duplex imaging was performed on October 07, 2021 at the [facility] and it failed to demonstrate any hemodynamically significant stenosis of either carotid artery. Less than 50% stenosis bilateral internal carotid arteries. The previous interpretation from the [facility] therefore likely an error. Patient Instructions: I recommended the patient now that his blood pressure is better controlled that we proceed with a screening colonoscopy with possible biopsy or polypectomy as indicated. He is aware of the technique, benefit, risk and alternatives. He has had an opportunity to ask and have questions answered. Barring any difficulties with that I recommend to him that we perform an aortogram with anticipated selective renal artery studies. Very careful attention to the right renal artery will be pursued. The patient may be a candidate for renal artery angioplasty and stenting in hopes of assisting with better blood pressure control as he now is on 4 different medications. No guarantees of success have been offered. He is aware of technique, benefit, risk, alternatives. I would anticipate that post procedure he would need to be placed on clopidogrel therapy for a period of time if a stent is indeed deployed. Copy: Dr. Prabhjot Gonzalez and Madeline Tadeo TRENCHING MACHINE OPERATOR, TRENCHING MACHINE OPERATOR-C Wilfred Benz M.D., F.A.C.S. The patient has successfully undergone his screening colonoscopy. He presents today in evaluation hopeful treatment of his malignant hypertension. Is an anticipated that we will pursue a abdominal aortogram with possible selective bilateral renal artery arteriograms and angioplasty and stenting of renal artery stenosis detected at this time. The patient is well aware of benefit, risk, alternatives. He elects to proceed as noted. Wilfred Benz M.D., F.A.C.S.
--- NOTE | 2021-12-10 10:59 | OP.PCM_ITS ---
Problems Associated Problem List Diagnoses (1) Malignant hypertension: (2) Renal artery stenosis: Report of Operation Date of Procedure: 12/10/21 Pre-Operative Diagnosis: Malignant hypertension, suspected renal artery stenosis Post-Operative Diagnosis: Bilateral renal artery stenosis Surgery/Procedure Performed:: Aortogram with selective bilateral renal artery arteriogram with bilateral renal artery angioplasty stenting Right renal 20 x 6 mm formula stent. Right renal 12 x 6 mm formula stent Left renal 12 x 6 mm formula stent Description of Surgical Findings:: Timeout informed consent was obtained. The patient was taken to the special procedure lab placed upon the table bilateral groins were sterilely prepped and draped. Throughout the procedure in aliquots he received a total of 50 mcg of fentanyl and 7 mg of Versed is intravenous sedation. 2% lidocaine was instilled in the right common femoral area under ultrasound guidance and using a micropuncture needle and ultrasound technique micropuncture was gained to the right common femoral artery micropuncture wire micropuncture sheath 035 J-wire 5 Qatari sheath dilator using an 03 5 inch Glidewire a 5 Qatari pigtail catheter was placed in the abdominal aorta. Using Visipaque contrast a abdominal aortogram was seen with 15 cc second for 10 cc of contrast. The aortogram demonstrated clinically significant bilateral renal artery stenosis. I then placed a 6 Qatari short sheath and then eventually placed a 6 Qatari 45 cm Rabie sheath. Used a 035 angled Glidewire and a 6 Qatari BLEVINS catheter. Access was gained to the right renal artery but I could not get consistent purchase. So I then switched to the left renal artery was able to get Glidewire purchase with the BLEVINS and then a 014 thunder wire. A 6 x 12 mm formu la stent was placed on the left position and insufflated. Resolution of the proximal high-grade stenosis was achieved. I then readdressed the right renal artery but the BLEVINS catheter would not give consistent purchase so was changed out for a [address] [facility] catheter. I used that in the sheath to help support. I was able to get a stiff Glidewire to advance and then the glide cath to advance. I then placed a 6 x 20 mm formula stent on the right I had a positioned precisely where I wanted to bedbug but upon insufflating the stent move forward. Insufflated that to 8 purnima of pressure. I then got a 6 x 12 mm stent to finish off treating the orifice stenosis. The patient had orifice stenosis on the right as well as proximal stenosis over the length of about 15 mm. Subsequent to the double placement of stent that that stenosis was resolved. Final images of each renal artery demonstrated resolution of the areas of clinically significant stenosis. It is of note that as soon as I had identified significant stenosis of the renal arteries I then gave the patient 9000 units of heparin and then based upon ACT measurements and allotments he received an additional 1000 Ancef heparin and then additional 1000 units of heparin. At the completion of the procedure devices were removed and a Perclose device was successfully deployed in the right groin with complete hemostasis. Hemostasis was intact no apparent complication vascular supply the right lower extremity intact. Images demonstrate a patent abdominal aorta with a proximal left renal artery stenosis over a length of approximately a centimeter with some poststenotic dilatation. The right renal artery had stenosis at the orifice and proximal portion over a length of at least 15 mm. There was also poststenotic dilatation. Subsequent to the angioplasty and stenting there appeared to be resolved areas of stenosis bilaterally. Total contrast used was 80 cc. The patient was taken to the recovery area in satisfactory addition with appare nt complication Wilfred Benz M.D., F.A.C.S. Surgeon: Wilfred Benz Type of Anesthesia: IV Sedation and Local
[2021-12-10 13:58] LABS: Absolute Lymphocyte Count 3.05 X10^3/uL (0.83-4.51); Absolute Neutrophil Count 3.2 X10^3/uL (2.0-7.7); Basophil# 0.02 X10^3/uL; Basophil% 0.3 % (0-1); Eosinophil# 0.11 X10^3/uL; Eosinophils% 1.6 % (0-5); Hematocrit 38.2 % (40-54); Hemoglobin 13.2 g/dL (13.0-16.5); Lymphocyte # 3.05 X10^3/ul (0.83-4.51); Mean Corp Hgb Conc 34.6 g/dL (32-36); Mean Corpuscular Hgb 31.9 pg (27.0-32.0); Mean Corpuscular Volume 92.3 fL (80-94); Mean Platelet Vol. 9.9 fl (6.2-12.0); Monocyte# 0.51 X10^3/uL; Monocyte% 7.4 % (0-10); NRBC Flagged by Analyzer 0 % (0-5); Neutrophil # 3.21 X10^3/uL (2.7-7.7); Neutrophil % 46.3 % (47-70); Platelet Count 235 K/mm3 (150-450); RBC Distribution Width SD 43.8 fl (35.1-43.9); Red Blood Count 4.14 M/mm3 (4.6-6.2); White Blood Count 6.9 K/mm3 (4.4-11.0)
[2021-12-10 14:21] LABS: Anion Gap 6 (5-15); BUN 28 mg/dL (7-18); BUN/Creat Ratio 18.5 RATIO (10-20); Calcium,Total 8.4 mg/dL (8.5-10.1); Chloride 110 mmol/L (98-107); Creatinine, Serum 1.51 mg/dL (0.70-1.30); EST Glomerular Filtration Rate 49 mL/min (>60); Est Glom Filt Rate - Afr Amer 59 mL/min (>60); Estimated Creatinine Clearance 49.96 ml/min; Glucose 92 mg/dL (74-106); Potassium 3.4 mmol/L (3.5-5.1); Sodium Level 143 mmol/L (136-145); Troponin-I HS 5 pg/mL (3.0-78.0)
--- NOTE | 2021-12-10 16:21 | PCM.PN.SRG ---
Subjective Subjective Patient is feeling much better. Earlier in the immediate post intervention. He was offered quite a sizable regular diet. Became nauseated had some abdominal discomfort became vasovagal. Now he states he has no abdominal pain no nausea. He has been able to move his bowels. He has been able to do self-catheterization. He is just slightly sore in the right groin. Objective Data Objective Data Vital Signs: Weight: 180 lb Body Mass Index (BMI) 24.4 Lab / Micro Data Result Diagrams: 12/10/21 13:48 12/10/21 13:48 Labs: Laboratory Results - last 24 hr 12/10/21 13:48: WBC 6.9, RBC 4.14 L, Hgb 13.2, Hct 38.2 L, MCV 92.3, MCH 31.9, MCHC 34.6, RDW Std Deviation 43.8, RDW Coeff of Ida 13.0, Plt Count 235, MPV 9.9, Immature Gran % (Auto) 0.400, Neut % (Auto) 46.3 L, Lymph % (Auto) 44.0 H, [place] % (Auto) 7.4, Eos % (Auto) 1.6, Baso % (Auto) 0.3, Absolute Neuts (auto) 3.2, Absolute Lymphs (auto) 3.05, Nucleated RBC % 0 12/10/21 13:48: Sodium 143, Potassium 3.4 L, Chloride 110 H, Carbon Dioxide 27.0, Anion Gap 6, BUN 28 H, Creatinine 1.51 H, Estim Creat Clear Calc 49.96, Est GFR (MDRD) Af Amer 59 L, Est GFR (MDRD) Non-Af 49 L, BUN/Creatinine Ratio 18.5, Glucose 92, Calcium 8.4 L, Troponin I High Sens 5 Physical Exam Cardio Cardio Narrative: Bilateral femoral and popliteal pulses 3+ GI GI Narrative: Soft, nontender, not distended, Extremity Extremity Narrative: Right groin supple nontender Assessment & Plan Assessment/Plan (1) Renal artery stenosis: PLAN: Patient appears to have stabilized out from his postoperative event after what appears to have been a vasovagal episode after eating immediately post procedure too much of a larger solid meal. His laboratory demonstrates no signs of bleeding. There is no signs of renal deterioration. Troponin normal. Potassium slightly low. I have instructed him that we will continue to keep him in observation on the surgical service overnight so that primary care can assist with management of his blood pressure and cardiac status to assure that an additional episode does not occur. I have instructed him that we will cut him back to clear liquids for supper as precautionary. He is aware that I will return for rounds very early in the morning. I anticipate a likely discharge home tomorrow pending ongoing medical evaluation. He is quite stable currently from surgical standpoint. I appreciate the ongoing medical assistance. Wilfred Benz M.D., F.A.C.S.
--- NOTE | 2021-12-10 16:22 | PN.HOSP_ITS ---
Subjective Subjective Mr. Deleon is a 71-year-old white male who was brought into the [facility] today for an abdominal aortogram with selective renal artery arteriogram and bilateral renal artery stenting. The patient was evaluated on 09/30/2021 with a renal artery duplex given persistent blood pressure elevations despite medical therapy and at that time he was found to have bilateral renal artery stenosis. He was indeed the found to have bilateral renal artery stenosis today in the [facility] and bilateral renal artery stents were placed without any difficulty. Shortly after his intervention in the recovery area of the [place] [employer] [facility] he ate a large meal but became nauseated and had some abdominal discomfort which was relieved by a bowel movement but in the process had a syncopal episode at which time his heart rate dropped to 39 and his blood pressure dropped to 70 systolic. Because of this, we were asked by Dr. Benz to see the patient for medical evaluation. At the time of my my evaluation, the patient's heart rate was in the 60s and his blood pressure was 115/79. The patient reports that he feels back to normal and has no discomfort other than some mild groin tenderness. He is an avid cyclist and states he always has a lower than normal heart rate and typically runs in the 50s to 60s. Objective Data Objective Data Vital Signs: Weight: 81.647 kg Body Mass Index (BMI) 24.4 Lab / Micro Data Result Diagrams: 12/10/21 13:48 12/10/21 13:48 Labs: Laboratory Results - last 24 hr 12/10/21 13:48: WBC 6.9, RBC 4.14 L, Hgb 13.2, Hct 38.2 L, MCV 92.3, MCH 31.9, MCHC 34.6, RDW Std Deviation 43.8, RDW Coeff of Ida 13.0, Plt Count 235, MPV 9.9, Immature Gran % (Auto) 0.400, Neut % (Auto) 46.3 L, Lymph % (Auto) 44.0 H, [place] % (Auto) 7.4, Eos % (Auto) 1.6, Baso % (Auto) 0.3, Absolute Neuts (auto) 3.2, Absolute Lymphs (auto) 3.05, Nucleated RBC % 0 12/10/21 13:48: Sodium 143, Potassium 3.4 L, Chloride 110 H, Carbon Dioxide 27.0, Anion Gap 6, BUN 28 H, Creatinine 1.51 H, Estim Creat Clear Calc 49.96, Est GFR (MDRD) Af Amer 59 L, Est GFR (MDRD) Non-Af 49 L, BUN/Creatinine Ratio 18.5, Glucose 92, Calcium 8.4 L, Troponin I High Sens 5 Physical Exam Const alert, oriented x3, no apparent distress, average body habitus, healthy appeari ng and well nourished Constitutional Narrative: Very pleasant fit appearing older white male sitting up in bed, his is at bedside, patient appears nontoxic and in no distress HEENT head/scalp atraumatic and moist oral mucous membranes Head and Scalp: normocephalic Resp normal respiratory effort, no retractions, no use of accessory muscles and clear to auscultation bilaterally Auscultation: Negative for crackles, rales, rhonchi or wheezes Cardio regular rhythm, S1 normal heart sound, S2 normal heart sound, no murmurs, no rub, no gallops, no clicks and no JVD Cardio Narrative: Slight bradycardia with heart rate of 59 GI normal to inspection, nondistended, normoactive bowel sounds, soft to palpation, non-tender and non-distended Extremity no clubbing, cyanosis or edema Peripheral Pulses: Yes pulses 2+ throughout Skin Skin Narrative: Right groin is soft without any ecchymosis or significant tenderness Neuro oriented x3, CN's II-XII intact bilaterally, moves all extremities and no focal motor deficits Sensorium / Orientation: awake, alert, oriented to person, oriented to place and oriented to time Speech: speech normal Assessment & Plan Assessment/Plan (1) Vasovagal syncope: (2) Hypokalemia: PLAN: Suspected vasovagal syncope -Patient admitted and will be monitored on telemetry -Patient appears to be back to normal at this time -Episode occurred with some nausea and a bowel movement -Continue to monitor Hypokalemia -40 mEq of p.o. potassium -Repeat in a.m. Chronic bradycardia -Patient has evidently had a history of bradycardia and this seems to be related to his significant fitness -He is also on metoprolol 100 mg daily for his blood pressure -Monitor on telemetry -Check TSH Chronic hypertension -Bilateral renal artery stents placed today for bilateral renal artery stenosis -He has had recent significant up titration in his oral medications -Patient is on amlodipine 10 mg daily, chlorthalidone 25 mg daily, losartan 100 mg daily, and metoprolol 100 mg daily for his blood pressure -Hold antihypertensives at this time -Evaluate blood pressures during the course of his hospitalization and cons ider reduction if renal artery stenting has caused a drop in his blood pressure with improved perfusion -As needed hydralazine available for systolic pressure greater than 160 Bilateral renal artery stenosis -Status post stenting 12/10/2021 -Continue Plavix -Dr. Benz managing DVT prophylaxis -Early ambulation -SCD -Low risk CODE STATUS -Full code as per discussion on admission in the [place] [facility] [employer] [facility] Charges/Coding Visit Charges OBSV E&M: 51627 Subsequent observation care L2
--- NOTE | 2021-12-10 16:26 | DCINST_ITS ---
Discharge Instructions Diet Discharge Diet: Light diet - advance as tolerated (if you have questions about your diet instructions, please talk to you doctor.) Activity Discharge Activity: May Not Drive (for 3-5 days or while taking narcotic pain medicine.) May shower in (days): 1 Lifting Restrictions: 10 pounds Dressing / Incision Call your doctor if your incision/area has: Continuous Slow Oozing, Sudden Increased Bleeding, Increased Pain/ Swelling, Increased Redness and Foul Smelling Discharge Call your doctor if you observe: Fever of 101 or Higher Suture Line Care: Avoid Pulling/Pushing and Avoid Pinching/Bending Follow Up Care Please Follow Up With: Wilfred Benz MD When: Call [phone] to make an appointment to be seen in about 10 days. Test Results: Please refer to the post intervention written Headwaitress instruction sheet previously provided at the time of planned outpatient procedure. You have received a dosage of clopidogrel today at 75 mg and you have a prescription awaiting you at your pharmacy. Please obtain that prescription on December 11, 2019 to initiate a 75 mg tablet on that same day. Your antihypertensives and other medications will be determined per the hospitalist service prior to discharge. Surgical follow-up at 7 to 10 days as per our previous discussion. Discharge Plan Admission Admit Date/Time: 12/10/21 14:04 Primary Reason for Your Visit: mALIGNANT HYPERTENSION, BILATERAL RENAL ARTERY STENOSIS Attending Provider: Wilfred Benz Primary Care Provider: Madeline Tadeo NP Consulting Providers: Era Rios Discharge Orders/Prescriptions Prescriptions: New clopidogrel [Plavix] 75 mg tablet 75 mg PO DAILY Qty: 90 RF: 0 Continued chlorthalidone 25 mg tablet 25 mg PO DAILY Qty: 90 RF: 2 metoprolol succinate 100 mg tablet extended release 24 hr 100 mg PO DAILY Qty: 90 RF: 3 losartan 100 mg tablet 100 mg PO DAILY RF: 0 amlodipine 10 MG tablet 10 mg PO DAILY RF: 0 acetaminophen 500 MG tablet 1,000 mg PO Q8 Qty: 90 RF: 0 Referrals / Follow Up: Madeline Tadeo NP, MATERIAL FLOW ENGINEER-C [Primary Care Provider] -
[2021-12-10] MEDS: 0.9% Normal Saline 1,000 ML 50 ML IV (16:30)
[2021-12-10] MEDS: Potassium Chloride Oral Tablet 20 MEQ 40 MEQ PO (17:42)
[2021-12-10] MEDS: Acetaminophen 500 MG Tablet 1000 MG PO (21:24)
[2021-12-11] VITALS (7 sets, daily range): BP systolic 108–124; BP diastolic 57–81; PULSE 48–55; RESP 16; TEMP 36.2–36.8; O2SAT 95–98
[2021-12-11 05:52] LABS: Absolute Lymphocyte Count 2.23 X10^3/uL (0.83-4.51); Absolute Neutrophil Count 4.1 X10^3/uL (2.0-7.7); Basophil# 0.04 X10^3/uL; Basophil% 0.6 % (0-1); Eosinophil# 0.16 X10^3/uL; Eosinophils% 2.3 % (0-5); Hematocrit 36.4 % (40-54); Hemoglobin 12.4 g/dL (13.0-16.5); Lymphocyte # 2.23 X10^3/ul (0.83-4.51); Lymphocyte % 31.9 % (19-41); Mean Corp Hgb Conc 34.1 g/dL (32-36); Mean Corpuscular Hgb 31.7 pg (27.0-32.0); Mean Corpuscular Volume 93.1 fL (80-94); Mean Platelet Vol. 9.8 fl (6.2-12.0); Monocyte# 0.48 X10^3/uL; Monocyte% 6.9 % (0-10); NRBC Flagged by Analyzer 0 % (0-5); Neutrophil # 4.07 X10^3/uL (2.7-7.7); Platelet Count 209 K/mm3 (150-450); RBC Distribution Width CV 12.9 % (11.6-14.6); Red Blood Count 3.91 M/mm3 (4.6-6.2)
--- NOTE | 2021-12-11 06:16 | PCM.PN.SRG ---
Subjective Subjective Other than the patient not sleeping well overnight because he was not in his normal bed he has no additional complaints. No abdominal pain. No back pain. No significant right groin pain. He does note that as they been taking his blood pressure he has never been as low before. Objective Data Objective Data Vital Signs: Vital Signs Temp Pulse Resp BP Pulse Ox 98.1 F 50 L 16 108/57 L 98 12/11/21 03:21 12/11/21 03:21 12/11/21 03:21 12/11/21 03:21 12/11/21 03:21 Oxygen Delivery Method Room Air Weight: 180 lb Body Mass Index (BMI) 24.4 Intake & Output: Intake and Output for Last 24 Hours 12/09/21 12/10/21 12/11/21 23:59 23:59 23:59 Intake Total 240 / 240 Balance 240 / 240 Lab / Micro Data Result Diagrams: 12/11/21 05:27 12/10/21 13:48 Labs: Laboratory Results - last 24 hr 12/10/21 13:48: WBC 6.9, RBC 4.14 L, Hgb 13.2, Hct 38.2 L, MCV 92.3, MCH 31.9, MCHC 34.6, RDW Std Deviation 43.8, RDW Coeff of Ida 13.0, Plt Count 235, MPV 9.9, Immature Gran % (Auto) 0.400, Neut % (Auto) 46.3 L, Lymph % (Auto) 44.0 H, [place] % (Auto) 7.4, Eos % (Auto) 1.6, Baso % (Auto) 0.3, Absolute Neuts (auto) 3.2, Absolute Lymphs (auto) 3.05, Nucleated RBC % 0 12/10/21 13:48: Sodium 143, Potassium 3.4 L, Chloride 110 H, Carbon Dioxide 27.0, Anion Gap 6, BUN 28 H, Creatinine 1.51 H, Estim Creat Clear Calc 49.96, Est GFR (MDRD) Af Amer 59 L, Est GFR (MDRD) Non-Af 49 L, BUN/Creatinine Ratio 18.5, Glucose 92, Calcium 8.4 L, Troponin I High Sens 5 12/11/21 05:27: WBC 7.0, RBC 3.91 L, Hgb 12.4 L, Hct 36.4 L, MCV 93.1, MCH 31.7, MCHC 34.1, RDW Std Deviation 44.0 H, RDW Coeff of Ida 12.9, Plt Count 209, MPV 9.8, Immature Gran % (Auto) 0.300, Neut % (Auto) 58.0, Lymph % (Auto) 31.9, [place] % (Auto) 6.9, Eos % (Auto) 2.3, Baso % (Auto) 0.6, Absolute Neuts (auto) 4.1, Absolute Lymphs (auto) 2.23, Nucleated RBC % 0 Physical Exam Resp normal respiratory effort Cardio Cardio Narrative: Bilateral femoral pulses 3+. Bilateral popliteal pulses 3+ GI GI Narrative: Soft, completely nontender, nondistended, normal bowel sounds Extremity Extremity Narrative: Right groin supple intact Assessment & Plan Assessment/Plan (1) History of stent insertion of renal artery: (2) Vasovagal syncope: PLAN: The postoperative episode yesterday of abdominal pain nausea hypotension appears to be related to a rather large meal within a short time period post bilateral renal artery stent procedure. He has not had any recurrence. He has no current clinical complaints. His heart rate has been in the low 50s consistent with his fitness level and bicycling Most recent blood pressure that I see recorded was 108/57. He received clopidogrel post procedure yesterday. He received some supplemental potassium chloride yesterday afternoon. I do not believe that he received any antihypertensives yesterday afternoon or evening. He is aware that I would like to have surgical follow-up with him in 7 to 10 days. He is ready for surgical discharge. Wilfred Benz M.D., F.A.C.S.
[2021-12-11 06:19] LABS: Anion Gap 4 (5-15); BUN 22 mg/dL (7-18); BUN/Creat Ratio 16.3 RATIO (10-20); Calcium,Total 8.3 mg/dL (8.5-10.1); Chloride 110 mmol/L (98-107); Creatinine, Serum 1.35 mg/dL (0.70-1.30); EST Glomerular Filtration Rate 55 mL/min (>60); Est Glom Filt Rate - Afr Amer 67 mL/min (>60); Estimated Creatinine Clearance 55.88 ml/min; Glucose 93 mg/dL (74-106); Potassium 4.2 mmol/L (3.5-5.1); Sodium Level 141 mmol/L (136-145); Thyroid Stim Hormone (TSH) 2.67 uIU/mL (0.358-3.74)
[2021-12-11] MEDS: Acetaminophen 500 MG Tablet 1000 MG PO (06:25)
--- NOTE | 2021-12-11 11:17 | PN.HOSP_ITS ---
Subjective Subjective Patient seen and examined. He has no complaints. He denies any dizziness or lightheadedness, palpitations, nausea or vomiting. Review of systems otherwise negative. He has remained hemodynamically stable. Objective Data Objective Data Vital Signs: Vital Signs Temp Pulse Resp BP Pulse Ox 98.2 F 51 L 16 123/78 H 95 12/11/21 08:11 12/11/21 08:11 12/11/21 08:11 12/11/21 08:11 12/11/21 10:09 Oxygen Delivery Method Room Air Weight: 180 lb Body Mass Index (BMI) 24.4 Intake & Output: Intake and Output for Last 24 Hours 12/09/21 12/10/21 12/11/21 23:59 23:59 23:59 Intake Total 240 / 240 Balance 240 / 240 Lab / Micro Data Result Diagrams: 12/11/21 05:27 12/11/21 05:27 Labs: Laboratory Results - last 24 hr 12/10/21 13:48: WBC 6.9, RBC 4.14 L, Hgb 13.2, Hct 38.2 L, MCV 92.3, MCH 31.9, MCHC 34.6, RDW Std Deviation 43.8, RDW Coeff of Ida 13.0, Plt Count 235, MPV 9.9, Immature Gran % (Auto) 0.400, Neut % (Auto) 46.3 L, Lymph % (Auto) 44.0 H, [place] % (Auto) 7.4, Eos % (Auto) 1.6, Baso % (Auto) 0.3, Absolute Neuts (auto) 3.2, Absolute Lymphs (auto) 3.05, Nucleated RBC % 0 12/10/21 13:48: Sodium 143, Potassium 3.4 L, Chloride 110 H, Carbon Dioxide 27. 0, Anion Gap 6, BUN 28 H, Creatinine 1.51 H, Estim Creat Clear Calc 49.96, Est GFR (MDRD) Af Amer 59 L, Est GFR (MDRD) Non-Af 49 L, BUN/Creatinine Ratio 18.5, Glucose 92, Calcium 8.4 L, Troponin I High Sens 5 12/11/21 05:27: WBC 7.0, RBC 3.91 L, Hgb 12.4 L, Hct 36.4 L, MCV 93.1, MCH 31.7, MCHC 34.1, RDW Std Deviation 44.0 H, RDW Coeff of Ida 12.9, Plt Count 209, MPV 9 .8, Immature Gran % (Auto) 0.300, Neut % (Auto) 58.0, Lymph % (Auto) 31.9, [place] % (Auto) 6.9, Eos % (Auto) 2.3, Baso % (Auto) 0.6, Absolute Neuts (auto) 4.1, Absolute Lymphs (auto) 2.23, Nucleated RBC % 0 12/11/21 05:27: Sodium 141, Potassium 4.2, Chloride 110 H, Carbon Dioxide 27.0, Anion Gap 4 L, BUN 22 H, Creatinine 1.35 H, Estim Creat Clear Calc 55.88, Est GFR (MDRD) Af Amer 67, Est GFR (MDRD) Non-Af 55 L, BUN/Creatinine Ratio 16.3, Glucose 93, Calcium 8.3 L, TSH 2.67 Physical Exam Const alert, oriented x3 and no apparent distress Exam Limitations: no limitations HEENT head/scalp atraumatic and moist oral mucous membranes Head and Scalp: normocephalic Eyes PERRL, EOMs intact bilaterally and conjunctivae normal Neck no lymphadenopathy Resp normal respiratory effort, no retractions, no use of accessory muscles and clear to auscultation bilaterally Cardio regular rate, regular rhythm, S1 normal heart sound, S2 normal heart sound and no murmurs GI normal to inspection, nondistended, normoactive bowel sounds, soft to palpation, non-tender and non-distended Extremity normal to inspection, full ROM and no clubbing, cyanosis or edema Peripheral Pulses: Yes pulses 2+ throughout Skin no rashes or lesions noted Neuro oriented x3, CN's II-XII intact bilaterally and moves all extremities Sensorium / Orientation: awake and alert Psych affect normal Assessment & Plan Assessment/Plan (1) History of stent insertion of renal artery: (2) Vasovagal syncope: PLAN: #Syncope * likely vasovagal. Occured after patient ate a large meal right after surgery. He became hypotensive and bradycardic * hypotension has resolved. His BP has been in the low 100s systolic. He has remained mildly bradycardic * feels much better today * discussed with his medical officer psychiatry Dr Gonzalez; will dc chlorthalidone, and reduce the metoprolol XL from 100mg daily to 50mg daily. * continue amlodipine and losartan * * #Bilateral renal artery stenosis * s/p bilateral stent placement n 12/10/2021 * management as per general surgery * on plavix * #Hypokalemia; #Hypertension: * is s/p bilateral renal stenting for renal artery stenosis * medications adjusted as above, with chlorthalidone discontinued, and metoprolol reduced to 50mg daily. Continue losartan 100mg daily and amlodipine 10mg daily * Patient counseled to keep a blood pressure log at home and present to his PCP and medical officer psychiatry for meds to be adjusted as needed. * #Bradycardia * Patient states he does have a history of bradycardia and attributed to his fluid status on account of him being an active cyclist. * Metoprolol however decreased to 50 mg daily in light of hypotension. * Currently stable. TSH was within normal limits at 2.67. * * DVT prophylaxis: as per primary team Disposition: Patient stable for discharge from hospitalist standpoint Charges/Coding Visit Charges Inpatient E&M: 64870 Subs Hosp L2
== END 2021-12-11 07:30 | disposition home or self-care (01) ==
LOC: PCU 15:42
PROVIDERS: Admitting Provider Surgery; PCP Registered Nurse; Referring Provider Surgery; Visit Provider Student in an Organized Health Care Education/Training Program
DX: I70.1 Atherosclerosis of renal artery (principal); R55 Syncope and collapse; M79.621 Pain in right upper arm; R11.0 Nausea; I44.0 Atrioventricular block, first degree; I10 Essential (primary) hypertension; E87.6 Hypokalemia; I65.21 Occlusion and stenosis of right carotid artery; J45.40 Moderate persistent asthma, uncomplicated; Z87.891 Personal history of nicotine dependence; Z79.899 Other long term (current) drug therapy; R94.8 Abnormal results of function studies of other organs and systems; R53.83 Other fatigue; R00.1 Bradycardia, unspecified; R10.9 Unspecified abdominal pain
CPT/HCPCS: 36252; 36415; 37236; 37237; 76937; 80048; 84443; 84484; 85025; 85027; 99152; 99153; 99218; J7030; J7040; Q9967; C1725; C1760; C1769; C1876; C1887; C1894; G0378; J2405

== ENCOUNTER 2022-01-05 09:58 | Observation (INO) | payer MEDICARE, OTHER, SELFPAY ==
--- NOTE | 2022-01-01 12:56 | RAD_ITS ---
STUDY: X-RAY CHEST REASON FOR EXAM: Male, 71 years old. chest pain TECHNIQUE: 2 views COMPARISON: None. FINDINGS: Cardiomediastinal silhouette is unremarkable. Costophrenic angles are sharp. Lungs are clear. The trachea is midline. There is no pneumothorax. Multilevel thoracic spondylosis is noted. There is an old healed fracture of the right clavicle. RAD/Chest PA and Lateral IMPRESSION: No acute cardiopulmonary process. Electronically Signed: Bertrand Sky MD at 23:00 EST ,
[2022-01-01 13:49] LABS: Absolute Lymphocyte Count 1.99 X10^3/uL (0.83-4.51); Absolute Neutrophil Count 3.5 X10^3/uL (2.0-7.7); Basophil# 0.06 X10^3/uL; Eosinophil# 0.14 X10^3/uL; Eosinophils% 2.2 % (0-5); Hematocrit 41.7 % (40-54); Lymphocyte # 1.99 X10^3/ul (0.83-4.51); Lymphocyte % 31.9 % (19-41); Mean Corp Hgb Conc 33.6 g/dL (32-36); Mean Corpuscular Volume 92.5 fL (80-94); Monocyte# 0.58 X10^3/uL; Monocyte% 9.3 % (0-10); NRBC Flagged by Analyzer 0 % (0-5); Neutrophil # 3.46 X10^3/uL (2.7-7.7); Neutrophil % 55.4 % (47-70); Platelet Count 299 K/mm3 (150-450); RBC Distribution Width CV 13.2 % (11.6-14.6); RBC Distribution Width SD 44.6 fl (35.1-43.9); Red Blood Count 4.51 M/mm3 (4.6-6.2); White Blood Count 6.2 K/mm3 (4.4-11.0)
[2022-01-01 14:10] LABS: Anion Gap 3 (5-15); BUN 18 mg/dL (7-18); BUN/Creat Ratio 12.1 RATIO (10-20); Calcium,Total 9.2 mg/dL (8.5-10.1); Chloride 104 mmol/L (98-107); Creatinine, Serum 1.49 mg/dL (0.70-1.30); EST Glomerular Filtration Rate 49 mL/min (>60); Est Glom Filt Rate - Afr Amer 60 mL/min (>60); Glucose 92 mg/dL (74-106); Potassium 4.4 mmol/L (3.5-5.1); Sodium Level 137 mmol/L (136-145)
[2022-01-02 10:12] VITALS: BMI 24.8
[2022-01-05] VITALS (16 sets, daily range): BP systolic 116–147; BP diastolic 56–95; PULSE 43–55; RESP 15–16; TEMP 36.3–36.7; O2SAT 96–99
--- NOTE | 2022-01-05 09:19 | CL.D_ITS ---
Patient Name: ANGELO BRUNSON Study Date: 01/05/2022 Performing: Prabhjot Gonzalez MD Ht: 72 inches 183 cm : 1950 Wt: 183.2 lbs 83 kg Age: 71 Gender: male BSA: 2.05 PROCEDURE(S) PERFORMED [id number])LHC/COR/LV CLINICAL PROFILE AND INDICATIONS Indications: Worsening Angina Heart Failure: None Stress/Imaging Date: 09/15/2021 CAD Presentations: Unstable angina. CONCLUSIONS Severe disease noted in the first obtuse marginal branch with 95% stenosis with mild to moderate dise ase noted in the mid left anterior descending artery and first diagonal vessel. Overall preserved le ft ventricular systolic function. RECOMMENDATIONS Referred for immediate PCI DESCRIPTION OF PROCEDURE The patient arrived to the procedure lab. The risks and benefits of the procedure as well as a full d escription of our services here and current unavailability of surgical backup were fully explained to the patient and/or their significant other prior to the catheterization. The Timeout was completed, verifying the correct patient and procedure. The patient's procedural site was prepped and draped in the usual fashion. Local anesthetic was given subcutaneously to right radial region with Lidocaine 2% . Using a modified Seldinger technique, arterial access was obtained via the right radial artery, a 6 Fr sheath was inserted. Left Coronary Artery selective angiography was performed in multiple views u sing a 5 Fr. 4.0 Register catheter. Right Coronary Artery selective angiography was then performed in mu ltiple views using a 5 Fr. 4.0 Register catheter. CORONARY ANGIOGRAPHY DOMINANCE: Right Dominant LEFT HEART ASSESSMENT Left Ventricular Ejection Fraction: by LV Gram 55 % Normal LV wall motion Normal Left Ventricular systolic function LEFT MAIN: Mild calcification, Angiographically normal LEFT ANTERIOR DESCENDING ARTERY: Moderate luminal irregularities up to 50% DIAGONAL 1: Proximal - 60 % Stenosis CIRCUMFLEX ARTERY: MID CIRC: Mild luminal irregularities OM 1: Proximal - 95 % Stenosis RIGHT CORONARY ARTERY: Mild luminal irregularities less than 30% COMPLICATIONS PROCEDURE MEDICATIONS Fentanyl 50 mcg IV Versed 1 mg IV Versed 1 mg IV Versed 1 mg IV Oxygen: 2 L/min via nasal cannula Baby Aspirin (81mg) 81 Tabs PO @ 01/05/2022 08:24:40 Plavix 300 mg PO 01/05/2022 09:11:48 SUMMARY OF HEMODYNAMIC DATA Time AIR REST ECG 08:22:38 ECG 08:45:26 AO 97/63 (75) SA 08:58:18 LV 98/-3, 3 09:04:53 LV 102/-2, 4 09:04:59 LV 104/0, 6 09:05:57 LV 105/0, 8 09:06:04 LVp 96/2, 8 09:06:15 AOp 0/55 (73) 09:06:20 Signed By Prabhjot Gonzalez MD On 01/05/2022 9:18:22 AM Prabhjot Gonzalez MD
--- NOTE | 2022-01-05 10:15 | EKG12_ITS ---
Test Reason : S/P PCI Blood Pressure : / mmHG Vent. Rate : 046 BPM Atrial Rate : 046 BPM P-R Int : 214 ms QRS Dur : 094 ms QT Int : 434 ms P-R-T Axes : 060 041 061 degrees QTc Int : 379 ms Marked sinus bradycardia with 1st degree A-V block Abnormal ECG When compared with ECG of 10-DEC-2021 13:22, MANUAL COMPARISON REQUIRED, DATA IS UNCONFIRMED Confirmed by MANOLO CARRION, PRABHJOT ([id number]), food editor TIARA PARADA ([id number]) on 01/07/2022 9:56:45 AM Referred By: Prabhjot Gonzalez Confirmed By:PRABHJOT GONZALEZ MD
--- NOTE | 2022-01-05 10:17 | PCIREPORT_ITS ---
PCI Cardiac Cath Report PCI Report: Procedure performed; 1. Successful PCI of high-grade 95% high OM1 with predilatation using 2 x 12 mm Emerge balloon Followed by placement of drug-eluting stent 2.5 x 15 mm HIMANSHU/Orsiro, postdilated using 3 x 12 mm NC Emerge balloon With reduction of stenosis from 95% to 0% and maintenance of pre and post MARLON-3 flow. 2. Placement of TR band to close the right radial artery arteriotomy site. Consent; Risk and benefit of procedure explained in detail to the patient, elected to proceed informed consent obtained. Preprocedure diagnosis; 71-year-old patient who is very active, and seen and evaluated by his primary care physician Dr. Gonzalez patient had symptoms of right arm pain does not have any symptoms of chest pain Known history of hypertension Underwent cardiac catheterization today The cardiac cath angiographic views discussed with Dr. Gonzalez, patient has high- grade 95% proximal OM1/high OM As well has moderate disease in the 30s diagonal branch of around 50-60% Mild to moderate disease involving the mid LAD which is a large vessel RCA is normal and LV systolic function is preserved ejection fraction of 55%.. Based on the clinical presentation we will proceed with a PCI of the 95% OM1. Sedation equipment used; 1. 6 [place]ian 3.5 EBU guide catheter 2. 0.014 extra floppy run-through 180 cm straight guidewire 3. 2 x 12 mm Emerge balloon 4. 2.5 x 15 mm Orsiro [place]/HIMANSHU. 5. 3 x 12 mm NC Emerge balloon 6. Anticoagulation use in the Manager Developmental patient was given additional dose of 300 mg of Plavix As well he was given 6000 units of heparin ACT level was 267. Procedure in detail; Under fluoroscopic guidance we will proceed with 6 [place]ian EBU guide catheter advanced ascending aorta cannulated the left main without difficulty Angiographic view obtained in the spider/MAORI caudal and ALVARADO caudal and AP caudal views Then will proceed with the guidewire which is a run-through 0.014 across the lesion without difficulty And will proceed with the balloon dilatation using 2 x 12 mm emerge followed by placement of drug-eluting stent 2.5 x 15 mm followed by postdilatation using 3 x 12 mm and achieve an excellent result with no evidence of proximal or distal dissection. And maintenance of MARLON-3 flow patient had no symptoms of chest pain and the cardiac cath technician showed no ST?T abnormalities. Following this all catheter removed. Additional dose of 2000 units of heparin was given. And a TR band applied to right radial artery arteriotomy site patient remained stable clinically he does not have any symptoms of chest pain Conclusion; successful PCI of OM1/high OM1 as detailed 2. Patient will follow up with his primary power technician Dr. Gonzalez at [facility] for continuation of cardiac care and medical management 3. Patient is scheduled for phase 1 cardiac rehab program. June Echeverria MD,FACC,[facility]
--- NOTE | 2022-01-05 11:22 | CRPHASE1_ITS ---
Patient Communication PHII Cardiac Rehab Discussed with Patient:: Yes Guide to Cardiac Rehab Given to Patient:: Yes Cardiac Rehab Facility Choice List Given to Patient:: Yes Choice Program [facility] CR PHII:: Communication Given to [facility] Clinic Licensed Practical Nurse:: Prabhjot Gonzalez Phase II Cardiac Rehab:: Yes Sessions:: 36 sessions - 3 days/wk, 12 weeks Cardiac Rehabilitation Info Cardiac Rehabilitation Program Information: Cardiac Rehabilitation is important for patients like you who are recovering from a heart problem. Cardiac rehabilitation programs are recognized as integral to the continued care of the patient with coronary heart disease. The cardiac rehabilitation program is designed to optimize a patient's physical, psychological, and social functioning. Health youth care worker work in cardiac rehabilitation programs and assist you with getting the treatments you need to get stronger and healthier - like exercise, healthy eating habits, and medications. Cardiac rehabilitation has been show to help people with heart problems live longer and have better life enjoyment than people who do not go to cardiac rehabilitation. Please contact the Cardiac Rehabilitation Program at [facility] at in two weeks if you have not heard from them.
--- NOTE | 2022-01-05 11:23 | CRPH1.INSTRU ---
General Education CAD and cardiac anatomy and function:: Patient communicates acknowledgment, Family communicates acknowledgment Explanation of diagnoses and procedures:: Patient communicates acknowledgment, Family communicates acknowledgment Sign/Symptoms of DE:: Patient communicates acknowledgment, Family communicates acknowledgment Antiplatelet therapy: Patient communicates acknowledgment, Family communicates acknowledgment Proper use of NTG-SL: Patient communicates acknowledgment, Family communicates acknowledgment Emergency procedures and activation of EMS: Patient communicates acknowledgment, Family communicates acknowledgment Compliance of all prescribed medications: Patient communicates acknowledgment, Family communicates acknowledgment Smoking Patient Nicotine/Smoking Risk Factors Are:: Non-smoker Dyslipidemia Recommendations Include:: Lipid profile not available Dyslipidemia Response Code:: Patient communicates acknowledgment, Family communicates acknowledgment Overweight/Obesity Patient Overweight/Obesity Risk Factors Are:: BMI Normal [18-25 & < 65 years old] Hypertension Recommendations Include:: Maintain BP <130/85, DASH dietary guidelines, Decrease/maintain normal body weight, Moderation of ETOH Hypertension:: Patient communicates acknowledgment, Family communicates acknowledgment Heart Disease Patient Heart Disease Risk Factors Are:: Family history of heart disease < 65 years old Recommendations Include:: Educated family members of their risk Heart Disease Response Code:: Patient communicates acknowledgment, Family communicates acknowledgment Diabetes Patient Diabetes Risk Factors Are:: No documented hx of diabetes Sedentary Recommendations Include:: Aerobic exercise 5-7 times/week for 20-30 minutes continuously, Benefits of regular exercise, Monitored Outpatient Cardiac Rehab Sedentary Response Code:: Patient communicates acknowledgment, Family communicates acknowledgment
[2022-01-05] MEDS: 0.9% Normal Saline 1,000 ML 75 ML IV (11:30)
[2022-01-06 02:30] VITALS: BP 133/88; PULSE 54; RESP 16; TEMP 36.4; O2SAT 96
[2022-01-06 06:44] LABS: Hematocrit 37.6 % (40-54); Hemoglobin 12.5 g/dL (13.0-16.5); Mean Corp Hgb Conc 33.2 g/dL (32-36); Mean Corpuscular Hgb 30.9 pg (27.0-32.0); Mean Corpuscular Volume 93.1 fL (80-94); Mean Platelet Vol. 10.7 fl (6.2-12.0); Platelet Count 224 K/mm3 (150-450); RBC Distribution Width SD 44.5 fl (35.1-43.9); Red Blood Count 4.04 M/mm3 (4.6-6.2); White Blood Count 5.5 K/mm3 (4.4-11.0)
[2022-01-06 07:13] LABS: AST(SGOT) 20 U/L (15-37); Alanine Aminotransfer ALT/SGPT 26 U/L (16-61); Alkaline Phosphatase 55 U/L (45-117); Anion Gap 3 (5-15); BUN 15 mg/dL (7-18); BUN/Creat Ratio 11.6 RATIO (10-20); Calcium,Total 8.8 mg/dL (8.5-10.1); Chloride 109 mmol/L (98-107); Creatinine, Serum 1.29 mg/dL (0.70-1.30); EST Glomerular Filtration Rate 58 mL/min (>60); Est Glom Filt Rate - Afr Amer 71 mL/min (>60); Estimated Creatinine Clearance 58.48 ml/min; Globulin 3.1 g/dL (2.2-4.2); Glucose 91 mg/dL (74-106); Potassium 4.3 mmol/L (3.5-5.1); Protein, Total 6.1 g/dL (6.4-8.2); Sodium Level 139 mmol/L (136-145)
[2022-01-06 07:51] VITALS: PULSE 55
--- NOTE | 2022-01-06 08:18 | PN.CARD_ITS ---
Subjective Subjective Patient seen and evaluated. Appears to be doing quite well. Objective Data Vital Signs: Vital Signs Temp Pulse Resp BP Pulse Ox 97.5 F L 55 L 16 133/88 H 96 01/06/22 02:30 01/06/22 07:51 01/06/22 02:30 01/06/22 02:30 01/06/22 02:30 Oxygen Delivery Method Room Air Weight: 183 lb Body Mass Index (BMI) 24.8 Intake & Output: Intake and Output for Last 24 Hours 01/04/22 01/05/22 01/06/22 23:59 23:59 23:59 Intake Total 988.75 / 988.75 Balance 988.75 / 988.75 Lab / Micro Data Result Diagrams: 01/06/22 05:36 01/06/22 05:36 Labs: Laboratory Results - last 24 hr 01/06/22 05:36: WBC 5.5, RBC 4.04 L, Hgb 12.5 L, Hct 37.6 L, MCV 93.1, MCH 30.9, MCHC 33.2, RDW Std Deviation 44.5 H, RDW Coeff of Ida 13.0, Plt Count 224, MPV 10.7 01/06/22 05:36: Sodium 139, Potassium 4.3, Chloride 109 H, Carbon Dioxide 27.0, Anion Gap 3 L, BUN 15, Creatinine 1.29, Estim Creat Clear Calc 58.48, Est GFR (MDRD) Af Amer 71, Est GFR (MDRD) Non-Af 58 L, BUN/Creatinine Ratio 11.6, Glucose 91, Calcium 8.8, Total Bilirubin 0.60, AST 20, ALT 26, Alkaline Phosphatase 55, Total Protein 6.1 L, Albumin 3.0 L, Globulin 3.1, Albumin/Globulin Ratio 1.0 Cardiology Labs/Tests 01/06/22 05:36: WBC 5.5, RBC 4.04 L, Hgb 12.5 L, Hct 37.6 L, MCV 93.1, MCH 30.9, MCHC 33.2, Plt Count 224, MPV 10.7 01/06/22 05:36: Sodium 139, Potassium 4.3, Chloride 109 H, Carbon Dioxide 27.0, Anion Gap 3 L, BUN 15, Creatinine 1.29, Est GFR (MDRD) Af Amer 71, Est GFR (MDRD) Non-Af 58 L, BUN/Creatinine Ratio 11.6, Glucose 91, Calcium 8.8, Total Bilirubin 0.60 Rhythm: EKG: ECHO: Stress Test: Cardiac Cath: PCI: CT Surgery: Holter monitor: EPS: PPM: CXR: Chest CT Scan: Physical Exam Const alert, oriented x3 and no apparent distress General Appearance: cooperative HEENT hearing grossly normal bilaterally Head and Scalp: atraumatic Eyes EOMs intact bilaterally Neck General: normal visual inspection Chest inspection of chest normal and palpation of chest normal Resp normal respiratory effort Auscultation: clear to auscultation bilaterally Cardio regular rate, regular rhythm, S1 normal heart sound and S2 normal heart sound Jugular Venous Distention: JVD GI normal to inspection, nondistended, normoactive bowel sounds Extremity normal capillary refill and no pedal edema Peripheral Pulses: Yes pulses 2+ throughout and femoral pulses present Skin no rashes or lesions noted Neuro oriented x3 and CN's II-XII intact bilaterally Psych Appearance: grossly normal and appropriate Assessment & Plan Assessment/Plan (1) History of coronary artery stent placement: PLAN: Patient is status post angioplasty and stenting of the first proximal obtuse marginal vessel. He did this successfully. He is doing quite well he does have residual disease in the left anterior descending artery and di agonal vessel which is moderate and will be managed medically. He has been discharged for outpatient follow-up in cardiac rehabilitation. (2) Essential hypertension: PLAN: Blood pressure appears to be under good control and we will continue to monitor this. Will be discharged for outpatient follow-up.
--- NOTE | 2022-01-06 08:20 | DCINST_ITS ---
Discharge Instructions Follow Up Care Test Results: Test results from this visit will be discussed in further detail at your follow-up appointment, if applicable. Discharge Plan Admission Admit Date/Time: 01/05/22 09:58 Attending Provider: Prabhjot Gonzalez Primary Care Provider: Madeline Tadeo NP Discharge Orders/Prescriptions Prescriptions: No Action losartan 100 mg tablet 100 mg PO DAILY RF: 0 aspirin [Adult Low Dose Aspirin] 81 mg tablet,delayed release (DR/EC) 81 mg PO DAILY RF: 0 clopidogrel [Plavix] 75 mg tablet 75 mg PO DAILY Qty: 30 RF: 0 amlodipine 10 MG tablet 10 mg PO DAILY RF: 0 acetaminophen 500 MG tablet 1,000 mg PO Q8 Qty: 90 RF: 0 metoprolol succinate 50 mg tablet extended release 24 hr 50 mg PO DAILY Qty: 30 RF: 1 Referrals / Follow Up: Madeline Tadeo NP, [employer] [Primary Care Provider] - Disposition Disposition (needs filled in before D/C Order can be placed): Home, Self Care
[2022-01-06 08:30] VITALS: BP 134/93; PULSE 57; RESP 14; TEMP 36.4; O2SAT 96
[2022-01-06] MEDS: Clopidogrel Bisulfate 75 MG Tablet PO (08:59)
[2022-01-06] MEDS: Aspirin E.C. 81 MG Tablet PO (08:59)
--- NOTE | 2022-01-06 10:00 | EKG12_ITS ---
Test Reason : AM EKG Blood Pressure : / mmHG Vent. Rate : 056 BPM Atrial Rate : 056 BPM P-R Int : 204 ms QRS Dur : 096 ms QT Int : 410 ms P-R-T Axes : 076 064 064 degrees QTc Int : 395 ms Sinus bradycardia Otherwise normal ECG When compared with ECG of 05-JAN-2022 11:19, MANUAL COMPARISON REQUIRED, DATA IS UNCONFIRMED Confirmed by MANOLO CARRION, PRABHJOT ([id number]), publication editor TIARA PARADA ([id number]) on 01/07/2022 9:55:25 AM Referred By: Prabhjot Gonzalez Confirmed By:PRABHJOT GONZALEZ MD
== END 2022-01-06 10:30 | disposition home or self-care (01) ==
LOC: PCU 12:56 → CLSP 01-09 08:06
PROVIDERS: Internal Medicine Interventional Cardiology; Admitting Provider Internal Medicine Cardiovascular Disease; PCP Registered Nurse; Referring Provider Internal Medicine Cardiovascular Disease; Visit Provider Internal Medicine Cardiovascular Disease
DX: I25.110 Atherosclerotic heart disease of native coronary artery with unstable angina pectoris (principal); I70.1 Atherosclerosis of renal artery; I10 Essential (primary) hypertension; Z95.5 Presence of coronary angioplasty implant and graft; Z79.02 Long term (current) use of antithrombotics/antiplatelets; Z79.899 Other long term (current) drug therapy; Z79.82 Long term (current) use of aspirin; J45.40 Moderate persistent asthma, uncomplicated; Z87.891 Personal history of nicotine dependence
CPT/HCPCS: 36415; 71046; 80048; 80053; 85025; 85027; 92928; 93005; 93458; 94762; 96360; 96361; 99152; 99153; 99218; C1874; J7030; J7040; C1725; C1769; C1887; C1894; C9600; G0378; Q9967

== ENCOUNTER 2022-01-19 07:48 | Outpatient (CLI) | payer MEDICARE, OTHER, SELFPAY ==
--- NOTE | 2022-01-19 07:57 | RDU_ITS ---
Reason For Study: Renal artery stenosis Right Renal Artery Left Renal Artery Right renal artery ostium 86.9/21.2 Left renal artery ostium 69.5/11.8 RSV/EDV. PSV/EDV. Right renal artery proximal Left renal artery proximal PSV/EDV 97.9/21.2 PSV/EDV. 52.3/10.6 . Right renal artery mid 114.3 Left renal artery mid 66.9/16.9 PSV/EDV. PSV/EDV . Right renal artery distal 107/34 Left renal artery distal 107.3/23.9 PSV/EDV. PSV/EDV. Right RAR 1.34. Left RAR 1.26. Right Renal Parenchyma Left Renal Parenchyma Upper Pole Medula 23.4/7.8 PSV/EDV. Left upper pole medulla 27.1/9.9 Right upper pole medulla EDR 0.33 . PSV/EDV . Right upper pole medulla R.I. Left upper pole medulla EDR 0.37 . 0.67 . Left upper pole medulla R.I. 0.63 . Upper Danny Cortx 13.4/4.8 PSV/EDV. UP Cortex 17.9/7.5 PSV/EDV. Right upper pole cortex EDR 0.36 . Left upper pole cortex EDR 0.42 . Right upper pole cortex R.I. 0.64 . Left upper pole cortex R.I. 0.58 . Right lower Pole medulla 19.4/6.3 Left lower Pole medulla 22.8/8.7 PSV/EDV . PSV/EDV . Right lower pole medulla EDR 0.32 . Left lower pole medulla EDR 0.38 . Right lower pole medulla R.I. Left lower pole medulla R.I. 0.62 . 0.68 . Lower Pole Cortx 16.1/6.3 PSV/EDV. Lower Pole Cortex 13.7/5.2 PSV/EDV. Left lower pole cortex EDR 0.39 . Right lower pole cortex EDR 0.38 . Left lower pole cortex R.I. 0.61 . Right lower pole cortex R.I. 0.62 . Left Renal Hilar Right Renal Hilar LT Hilar avg 53.1/18.7 PSV/EDV . Right Hilar avg 54.4/16.6 PSV/EDV. Left hilar acceleration time 50 Right hilar acceleration time 70 m/sec. m/sec. Left Renal Dimensions Right Renal Dimensions Left kidney size 10.27 cm . Right kidney size 11.91 cm . Left cortical dimension 1.54 cm . Right cortical dimension 1.81 cm . Aorta Proximal abdominal aorta 2.26 x 2.33 cm . Proximal abdominal aorta peak systolic velocity is 85.1 cm/sec . Distal abdominal aorta 1.78 x 1.72 cm . Distal abdominal aorta peak systolic velocity is 94.2 cm/sec . . Renal artery stents noted bilaterally. VL/Renal Artery Duplex Ultrasound Interpretation Summary Maximal abdominal aortic dimensions 2.26 x 2.33 cm diameter which is normal Less than 60% stenosis of the right renal artery with right renal length 11.91 cm. Less than 60% stenosis left renal artery. Left renal length 10.27 cm. Evidence of bilateral renal artery stents Improvement in renal artery velocities from the previous examination of 2020 Ordering Physician: Wilfred Benz Referring Physician: Madleine Tadeo Performed By: Emily Quiroz RVT
== END 2022-01-19 23:59 | disposition home or self-care (01) ==
LOC: CVS 07:49
PROVIDERS: PCP Registered Nurse; Referring Provider Surgery; Visit Provider Surgery
DX: I70.1 Atherosclerosis of renal artery (principal)
CPT/HCPCS: 93975

== ENCOUNTER → 2022-03-10 | Outpatient (CLI) | payer MEDICARE, OTHER, SELFPAY ==
[2022-03-10 11:10] LABS: Absolute Lymphocyte Count 1.78 X10^3/uL (0.83-4.51); Absolute Neutrophil Count 2.9 X10^3/uL (2.0-7.7); Basophil# 0.06 X10^3/uL; Basophil% 1.1 % (0-1); Eosinophil# 0.26 X10^3/uL; Eosinophils% 4.6 % (0-5); Hematocrit 38.7 % (40-54); Hemoglobin 12.7 g/dL (13.0-16.5); Lymphocyte # 1.78 X10^3/ul (0.83-4.51); Lymphocyte % 31.4 % (19-41); Mean Corp Hgb Conc 32.8 g/dL (32-36); Mean Corpuscular Hgb 31.2 pg (27.0-32.0); Mean Corpuscular Volume 95.1 fL (80-94); Mean Platelet Vol. 10.3 fl (6.2-12.0); Monocyte# 0.62 X10^3/uL; NRBC Flagged by Analyzer 0 % (0-5); Neutrophil # 2.93 X10^3/uL (2.7-7.7); Neutrophil % 51.7 % (47-70); Platelet Count 238 K/mm3 (150-450); RBC Distribution Width CV 12.9 % (11.6-14.6); Red Blood Count 4.07 M/mm3 (4.6-6.2); White Blood Count 5.7 K/mm3 (4.4-11.0)
[2022-03-10 11:38] LABS: AST(SGOT) 20 U/L (15-37); Alanine Aminotransfer ALT/SGPT 28 U/L (16-61); Albumin, Serum 3.5 g/dL (3.2-5.0); Alkaline Phosphatase 93 U/L (45-117); Anion Gap 7 (5-15); BUN 21 mg/dL (7-18); BUN/Creat Ratio 14.6 RATIO (10-20); Bilirubin, Direct 0.12 mg/dL (0.00-0.30); Chloride 107 mmol/L (98-107); Cholesterol 110 mg/dL (200); Creatinine, Serum 1.44 mg/dL (0.70-1.30); EST Glomerular Filtration Rate 51 mL/min (>60); Est Glom Filt Rate - Afr Amer 62 mL/min (>60); Globulin 3.4 g/dL (2.2-4.2); Glucose 89 mg/dL (74-106); High Density Lipoprotein 62 mg/dL; Potassium 4.6 mmol/L (3.5-5.1); Protein, Total 6.9 g/dL (6.4-8.2); Sodium Level 139 mmol/L (136-145); Triglycerides 28 mg/dL; Very Low Density Lipoprotein 6 mg/dL (5-40)
== END | disposition home or self-care (01) ==
LOC: LAB 10:42
PROVIDERS: PCP Registered Nurse; Visit Provider Internal Medicine Cardiovascular Disease
DX: R05.9 Cough, unspecified (principal); I10 Essential (primary) hypertension; I65.21 Occlusion and stenosis of right carotid artery
CPT/HCPCS: 36415; 80053; 80061; 82248; 85025

== ENCOUNTER → 2022-06-22 | Outpatient (CLI) | payer MEDICARE, OTHER, SELFPAY ==
--- NOTE | 2022-06-23 08:54 | PFT ---
INTRODUCTION: The patient is a 72-year-old male that presents for pulmonary function studies secondary to a diagnosis of chronic cough. Respiratory therapy reported good patient effort. Bronchodilators were used during testing. INTERPRETATION: Forced expiration spirometry demonstrates the presence of a moderate large airways obstructive ventilatory defect. There was a significant response to aerosolized bronchodilators noted. Spirograms are of good quality but do not plateau indicating slow emptying of the lungs. Body plethysmography was performed and reveals lung volumes to be within normal limits. Diffusing capacity by single breath CO is also within normal limits. IMPRESSION: Partially reversible moderate large airways obstructive ventilatory defect with preserved lung volumes and diffusing capacity.
== END | disposition home or self-care (01) ==
LOC: PSN 09:14
PROVIDERS: PCP Registered Nurse; Referring Provider Internal Medicine Critical Care Medicine; Visit Provider Internal Medicine Critical Care Medicine
DX: R05.3 Chronic cough (principal)
CPT/HCPCS: 94060; 94726; 94729

== ENCOUNTER → 2022-11-10 | Outpatient (CLI) | payer MEDICARE, OTHER, SELFPAY ==
[2022-11-10 09:35] LABS: AST(SGOT) 22 U/L (15-37); Alanine Aminotransfer ALT/SGPT 35 U/L (16-61); Albumin, Serum 3.6 g/dL (3.2-5.0); Alkaline Phosphatase 79 U/L (45-117); Bilirubin, Direct 0.13 mg/dL (0.00-0.30); Cholesterol 116 mg/dL (200); Globulin 3.4 g/dL (2.2-4.2); High Density Lipoprotein 54 mg/dL; Triglycerides 49 mg/dL; Very Low Density Lipoprotein 10 mg/dL (5-40)
== END | disposition home or self-care (01) ==
LOC: LAB 08:55
PROVIDERS: PCP Registered Nurse; Referring Provider Internal Medicine Cardiovascular Disease; Visit Provider Internal Medicine Cardiovascular Disease
DX: E78.00 Pure hypercholesterolemia, unspecified (principal); I10 Essential (primary) hypertension; I25.10 Atherosclerotic heart disease of native coronary artery without angina pectoris; Z95.5 Presence of coronary angioplasty implant and graft
CPT/HCPCS: 36415; 80061; 80076

== ENCOUNTER → 2023-01-12 | Outpatient (CLI) | payer MEDICARE, OTHER, SELFPAY ==
[2023-01-12 10:50] LABS: PSA,Total - Annual Screen 0.65 ng/mL (0.00-4.00)
== END | disposition home or self-care (01) ==
LOC: LAB 09:02
PROVIDERS: PCP Registered Nurse; Referring Provider Urology; Visit Provider Urology
DX: Z12.5 Encounter for screening for malignant neoplasm of prostate (principal)
CPT/HCPCS: 36415; 84153; G0103

== ENCOUNTER → 2023-03-04 | Outpatient (CLI) | payer MEDICARE, OTHER, SELFPAY ==
--- NOTE | 2023-03-04 13:01 | ECHOD_ITS ---
Reason For Study: CAD/ASHD Procedure This was a 2D Doppler, Color Flow transthoracic echocardiogram. Exam performed in department. Left Ventricle Normal LV size. Left ventricular systolic function is normal. The estimated ejection fraction is 60 %. Stage 1 diastolic dysfunction. No regional wall motion abnormalities noted. Right Ventricle Normal RV size. Normal systolic function. Atria Normal left atrium. Normal right atrium. Mitral Valve Normal mitral valve. Tricuspid Valve Normal tricuspid valve. Aortic Valve Trisinus/trileaflet aortic valve. Pulmonic Valve Normal pulmonic valve. Great Vessels Normal aortic root. The pulmonary artery is normal size. Normal inferior vena cava. Pericardium/Pleural No pericardial effusion. MMode/2D Measurements & Calculations LVIDd: 4.9 cm IVSd: 0.86 cm LAV(MOD-bp): 48.6 ml LVIDs: 2.8 cm LVPWd: 0.95 cm LAV(MOD-bp) Indexed: 23.8 ml/m2 RVDd: 3.5 cm FS: 42.2 % LAV(MOD-sp2): 91.9 ml LAV(MOD-sp4): 23.3 ml SV(MOD-sp4): 55.7 ml SV(sp4-el): 59.9 ml LVAd ap4: 30.6 cm2 LVLd ap4: 8.8 cm EDV(MOD-sp4): 86.0 ml EDV(sp4-el): 90.9 ml LVAs ap4: 16.2 cm2 LVLs ap4: 7.2 cm ESV(MOD-sp4): 30.4 ml ESV(sp4-el): 31.0 ml EF(MOD-sp4): 64.7 % EF(sp4-el): 65.9 % LA A4 area: 12.9 cm2 LA dimension(2D): 3.5 cm RA A4 area: 18.9 cm2 Time Measurements MV dec time: 0.39 sec Doppler Measurements & Calculations MV E max sherman: 46.3 cm/sec Lat Peak E' Sherman: 12.1 cm/sec Med Peak E' Sherman: 7.9 cm/sec MV A max sherman: 49.7 cm/sec E/E' lat: 3.8 E/E' med: 5.8 MV E/A: 0.93 MV V2 max: 58.6 cm/sec MV dec slope: 118.5 cm/sec2 Ao V2 max: 142.7 cm/sec MV max P.4 mmHg Ao max P.1 mmHg MV V2 mean: 33.1 cm/sec Ao V2 mean: 95.3 cm/sec MV mean P.52 mmHg Ao mean P.2 mmHg MV V2 VTI: 25.0 cm Ao V2 VTI: 31.6 cm AV (velocity ratio): 0.85 LV V1 max: 109.8 cm/sec PA V2 max: 98.2 cm/sec LV V1 max P.8 mmHg PA V2 mean: 61.6 cm/sec LV V1 mean P.5 mmHg LV V1 mean: 73.1 cm/sec LV V1 VTI: 26.8 cm ECHO/Echo Complete Interpretation Summary Normal LV size. Left ventricular systolic function is normal. The estimated ejection fraction is 60 %. Stage 1 diastolic dysfunction. Ordering Physician: Prabhjot Gonzalez Referring Physician: Prabhjot Gonzalez Performed By: Amie Jean Baptiste RCS
== END | disposition home or self-care (01) ==
LOC: CVS 13:00
PROVIDERS: PCP Registered Nurse; Referring Provider Internal Medicine Cardiovascular Disease; Visit Provider Internal Medicine Cardiovascular Disease
DX: I25.10 Atherosclerotic heart disease of native coronary artery without angina pectoris (principal)
CPT/HCPCS: 93306

== ENCOUNTER → 2024-01-25 | Outpatient (CLI) | payer MEDICARE, OTHER, SELFPAY ==
[2024-01-25 11:47] LABS: PSA,Total - Annual Screen 0.56 ng/mL (0.00-4.00)
== END | disposition home or self-care (01) ==
LOC: LAB 10:17
PROVIDERS: PCP Registered Nurse; Referring Provider Urology; Visit Provider Urology
DX: Z12.5 Encounter for screening for malignant neoplasm of prostate (principal)
CPT/HCPCS: 36415; 84153; G0103

== ENCOUNTER → 2024-01-27 | Outpatient (CLI) | payer MEDICARE, OTHER, SELFPAY ==
[2024-01-27 10:24] LABS: Absolute Neutrophil Count 3.4 X10^3/uL (2.0-7.7); Basophil# 0.07 X10^3/uL; Basophil% 1.1 % (0-1); Eosinophil# 0.27 X10^3/uL; Eosinophils% 4.4 % (0-5); Hematocrit 46.1 % (40-54); Hemoglobin 14.9 g/dL (13.0-16.5); Lymphocyte % 29.2 % (19-41); Mean Corp Hgb Conc 32.3 g/dL (32-36); Mean Corpuscular Hgb 30.1 pg (27.0-32.0); Mean Corpuscular Volume 93.1 fL (80-94); Mean Platelet Vol. 10.8 fl (6.2-12.0); Monocyte# 0.59 X10^3/uL; Monocyte% 9.6 % (0-10); NRBC Flagged by Analyzer 0 % (0-5); Neutrophil # 3.41 X10^3/uL (2.7-7.7); Neutrophil % 55.4 % (47-70); Platelet Count 290 K/mm3 (150-450); RBC Distribution Width CV 13.3 % (11.6-14.6); RBC Distribution Width SD 45.1 fl (35.1-43.9); Red Blood Count 4.95 M/mm3 (4.6-6.2); White Blood Count 6.2 K/mm3 (4.4-11.0)
[2024-01-27 10:31] LABS: AST(SGOT) 25 U/L (15-37); Alanine Aminotransfer ALT/SGPT 32 U/L (16-61); Albumin, Serum 3.7 g/dL (3.2-5.0); Alkaline Phosphatase 114 U/L (45-117); Anion Gap 6 (5-15); BUN 24 mg/dL (7-18); BUN/Creat Ratio 15.2 RATIO (10-20); Bilirubin, Direct 0.16 mg/dL (0.00-0.30); Calcium,Total 9.1 mg/dL (8.5-10.1); Chloride 106 mmol/L (98-107); Cholesterol 119 mg/dL (200); Creatinine, Serum 1.58 mg/dL (0.70-1.30); EST Glomerular Filtration Rate 46 mL/min (>60); Est Glom Filt Rate - Afr Amer 56 mL/min (>60); Globulin 3.4 g/dL (2.2-4.2); Glucose 98 mg/dL (74-106); High Density Lipoprotein 66 mg/dL; Potassium 4.5 mmol/L (3.5-5.1); Protein, Total 7.1 g/dL (6.4-8.2); Sodium Level 138 mmol/L (136-145); Triglycerides 33 mg/dL; Very Low Density Lipoprotein 7 mg/dL (5-40)
== END | disposition home or self-care (01) ==
PROVIDERS: PCP Registered Nurse; Referring Provider Nurse Practitioner Gerontology; Visit Provider Nurse Practitioner Gerontology
DX: R53.83 Other fatigue (principal); I10 Essential (primary) hypertension; Z95.5 Presence of coronary angioplasty implant and graft
CPT/HCPCS: 36415; 80048; 80061; 80076; 85025

== ENCOUNTER 2024-12-29 15:47 | Emergency (ER) | payer MEDICARE, OTHER, SELFPAY ==
[2024-12-29] VITALS (11 sets, daily range): BP systolic 72–148; BP diastolic 62–90; PULSE 72–92; RESP 14–28; TEMP 36–37.4; O2SAT 92–99; BMI 23.6
--- NOTE | 2024-12-29 15:58 | EX.ED.DYSGE1 ---
HPI History of Present Illness Chief Complaint: Nausea/Vomiting Informant: patient Onset/Context/Timing Onset: Days (5) Context: Gradual Onset Timing: Continuous Quality: Weakness Location: Generalized Worsened by: Nothing Relieved by: Nothing Narrative Narrative: Patient presents with nausea and vomiting for the past 5 days. Patient states he saw his primary care physician today who referred him to the emergency department because he felt he was dehydrated. Patient states he has been feeling weak. Patient states that this is generalized. Patient states nothing makes his symptoms worse and nothing makes it better. Patient denies any diarrhea. Patient denies any fevers or chills. Patient denies any urinary complaints. [facility] Medical History Atherosclerotic heart disease of [place] coronary artery without angina pectoris Essential hypertension Vasovagal syncope Malignant hypertension Renal artery stenosis Anxiety Moderate persistent asthma Herpes zoster Diverticulitis Bladder atony ADD (attention deficit disorder) Home Medications ?Medication ?Instructions ?Recorded ?Last Taken ?Type amlodipine 10 mg tablet 10 mg PO DAILY #90 tabs 05/08/24 Unknown Rx clopidogrel 75 mg tablet (Plavix) 75 mg PO DAILY #90 tabs 05/08/24 Unknown Rx losartan 100 mg tablet 100 mg PO DAILY #90 tabs 05/08/24 Unknown Rx metoprolol succinate 50 mg 50 mg PO DAILY #90 tabs 05/08/24 Unknown Rx tablet,extended release 24 hr fluticasone furoate 200 1 inh inhalation QDAY #60 ea 05/16/24 Unknown Rx mcg-vilanterol 25 mcg/dose inhalation powder (Breo Ellipta) rosuvastatin 20 mg tablet See Rx Instructions .Route 09/14/24 Unknown Rx .COMPLEX #90 tabs albuterol sulfate 90 mcg/actuation 2 puff inhalation Q4H PRN 12/29/24 Unknown Rx aerosol inhaler (Ventolin HFA) shortness of breath or wheezing #18 grams ondansetron 4 mg disintegrating 4 mg PO Q8H PRN PRN Nausea #10 tabs 12/29/24 Unknown Rx tablet Allergy/AdvReac Type Severity Reaction Status Date / Time No Known Allergies Allergy Verified 05/16/24 08:55 Family History Aunt Breast cancer Mother Hypertension Father Hypertension CVA (cerebral vascular accident) Brother Hypertension CVA (cerebral vascular accident) Sister Hypertension Surgical History History of coronary artery stent placement (01/05/22) History of stent insertion of renal artery (12/10/21) History of bowel resection History of appendectomy Social History Smoking Status: Former smoker alcohol intake: never substance use type: does not use caffeine: Yes ROS ROS ED Constitutional Constitutional ED: Denies chills or fever(s) Eyes Eyes: Denies blurry vision or change in vision ENT ENT ED: Denies rhinorrhea or sore throat Cardiovascular Cardiovascular: Denies chest pain or palpitations Respiratory/Chest Respiratory/Chest: Denies cough or dyspnea Gastrointestinal Gastrointestinal: Reports nausea and vomiting Genitourinary Genitourinary ED: Denies dysuria or hematuria Musculoskeletal Musculoskeletal: Denies back pain or neck pain Integumentary Denies abscess or rash Neurologic Neurologic: Reports weakness; Denies headache(s) Allergic/Immunologic Allergic/Immunologic ED: Denies mouth swelling or urticaria EXAM Physical Exam Const Vital Signs: 12/29/24 15:48 12/29/24 15:50 12/29/24 16:13 Temperature 96.8 F L 96.8 F L Temperature Source Temporal Oral Pulse Rate 92 84 Pulse Rate [Lying] 79 Pulse Rate [Sitting (for 1 minute prior to obtaining)] 81 Respiratory Rate 16 28 H Respiratory Pattern Blood Pressure 85/62 L 106/77 Blood Pressure [Lying] 115/74 Blood Pressure [Sitting (for 1 minute prior to obtaining)] 109/74 Blood Pressure [Standing (for 1 minute prior to obtaining)] 72/62 L Blood Pressure Mean 69 86 Blood Pressure Mean [Lying] 87 Blood Pressure Mean [Sitting (for 1 minute prior to obtaining)] 85 Blood Pressure Mean [Standing (for 1 minute prior to obtaining)] 65 Pulse Ox 93 93 Oxygen Delivery Method Room Air Nasal Cannula Oxygen Flow Rate (L/min) 2 12/29/24 16:50 12/29/24 17:00 12/29/24 18:00 Temperature 97.8 F 99.4 F H 99.4 F H Temperature Source Oral Oral Oral Pulse Rate 82 72 73 Pulse Rate [Lying] Pulse Rate [Sitting (for 1 minute prior to obtaining)] Respiratory Rate 21 H 18 19 H Respiratory Pattern Blood Pressure 121/71 H 129/77 H 112/76 Blood Pressure [Lying] Blood Pressure [Sitting (for 1 minute prior to obtaining)] Blood Pressure [Standing (for 1 minute prior to obtaining)] Blood Pressure Mean 87 94 88 Blood Pressure Mean [Lying] Blood Pressure Mean [Sitting (for 1 minute prior to obtaining)] Blood Pressure Mean [Standing (for 1 minute prior to obtaining)] Pulse Ox 94 94 95 Oxygen Delivery Method Nasal Cannula Nasal Cannula Nasal Cannula Oxygen Flow Rate (L/min) 2 2 2 12/29/24 19:00 12/29/24 19:15 12/29/24 19:58 Temperature Temperature Source Pulse Rate 78 76 78 Pulse Rate [Lying] Pulse Rate [Sitting (for 1 minute prior to obtaining)] Respiratory Rate 19 H 14 18 Respiratory Pattern Normal Blood Pressure 113/82 H Blood Pressure [Lying] Blood Pressure [Sitting (for 1 minute prior to obtaining)] Blood Pressure [Standing (for 1 minute prior to obtaining)] Blood Pressure Mean 92 Blood Pressure Mean [Lying] Blood Pressure Mean [Sitting (for 1 minute prior to obtaining)] Blood Pressure Mean [Standing (for 1 minute prior to obtaining)] Pulse Ox 92 99 Oxygen Delivery Method Nasal Cannula Nasal Cannula Oxygen Flow Rate (L/min) 2 2 Positive well nourished and well developed General Appearance ED: well developed and NAD HEENT Reports moist mucous membranes Neck supple and no JVD Resp normal respiratory effort and clear to auscultation bilaterally Cardio regular rate and regular rhythm GI non-tender and non-distended Palpation: soft Extremity normal to inspection General Extremety ED: Negative for edema or tenderness General Extremity: Negative for edema Neuro oriented x3, CN's II-XII intact bilaterally and no sensory deficits noted Sensorium / Orientation: alert Motor Exam: strength 5/5 throughout Psych mental status grossly normal MDM MDM MDM Narrative Medical decision making narrative: Differential diagnosis includes viral illness, dehydration, and electrolyte abnormality. CBC will be obtained to assess for leukocytosis and anemia. Basic metabolic profile will be obtained to assess for electrolyte abnormality and renal function. Lab Data Attestation: I reviewed the patient's lab results. Lab results narrative: CBC was reviewed and was within normal limits. Basic metabolic profile was reviewed. BUN was elevated at 40 and creatinine was 2.49. These were increased from previous results. Labs: Laboratory Results - last 24 hr 12/29/24 16:11 WBC 10.6 RBC 4.99 Hgb 15.2 Hct 44.8 MCV 89.8 MCH 30.5 MCHC 33.9 RDW Std Deviation 41.3 RDW Coeff of Ida 12.6 Plt Count 248 MPV 9.8 Immature Gran % (Auto) 0.800 Neut % (Auto) 75.8 H Lymph % (Auto) 15.8 L Fajardo % (Auto) 7.1 Eos % (Auto) 0.1 Baso % (Auto) 0.4 Absolute Neuts (auto) 8.0 H Absolute Lymphs (auto) 1.68 Nucleated RBC % 0 Sodium 133 Potassium 4.2 Chloride Direct 96 Carbon Dioxide 22.6 Anion Gap 14 BUN 40 H Creatinine 2.49 H Estim Creat Clear Calc 29.00 Est GFR (MDRD) Non-Af 27 L BUN/Creatinine Ratio 15.9 Glucose 103 H Calcium 9.4 Radiography Chest X-Ray - ED: 2 View, Read by ED Physician, Read by Radiologist and No Acute Disease Diagnostic Testing: Clinical Impression(s) from Imaging Studies Chest X-Ray 12/29/24 19:40 IMPRESSION: NO SIGNIFICANT CHANGE SINCE THE PRIOR EXAM. Reading Location: [facility] [place] and lateral chest x-ray was obtained. There are 2 views. On my independent interpretation, lung harris are clear. There is normal cardiac silhouette. Bony thorax is normal. There is no acute process noted. Radiologist also interpreted the x-ray and agrees. Management Discussion w/another healthcare provider: Hospitalist Treatment and Re-Evaluation :: Patient was given IV fluids. Orthostatic vital signs were obtained and were positive. Patient was given a second liter bolus of normal saline. Patient was advised of his findings. Patient's blood pressure improved after this. Case was discussed with the hospitalist for observation admission. Hospitalist did not feel patient required admission to the hospital. Patient ambulated in the emergency department. Patient's pulse oximeter improved to 92% while ambulating but dropped to 89% while at rest. Patient was given a DuoNeb aerosol here. Because of the drop in his O2 saturation, chest x-ray was obtained. There is no pneumonia or other acute process. After DuoNeb aerosol, patient's pulse oximeter was 92% on room air. Patient was given a prescription for albuterol inhaler. Patient was instructed to drink plenty of fluids. Patient was instructed to follow-up with his primary care physician in 5 to 7 days. Patient was instructed return if worse in any way. Patient understood and was agreeable with the plan. All questions were answered. Discharge Plan Triage Chief Complaint: Nausea/Vomiting ED Provider: Mehul Holloway Dx/Rx/DC Orders Clinical Impression: Nausea and vomiting, COPD with asthma, Dehydration Instructions: ED Chronic Kidney Disease (CKD), ED COPD Flare, ED Dehydration (Adult) Prescriptions: New ondansetron 4 mg tablet,disintegrating 4 mg PO Q8H PRN PRN (Reason: Nausea) Qty: 10 0RF Continued albuterol sulfate [Ventolin HFA] 90 mcg/actuation HFA aerosol inhaler 2 puff inhalation Q4H PRN (Reason: shortness of breath or wheezing) Qty: 18 0RF No Action fluticasone furoate-vilanterol [Breo Ellipta] 200-25 mcg/dose blister with device 1 inh inhalation QDAY Qty: 60 6RF Rx Instructions: after inhalation, rinse mouth with water and spit out; do not swallow amlodipine 10 mg tablet 10 mg PO DAILY Qty: 90 3RF clopidogrel [Plavix] 75 mg tablet 75 mg PO DAILY Qty: 90 3RF losartan 100 mg tablet 100 mg PO DAILY Qty: 90 3RF metoprolol succinate 50 mg tablet extended release 24 hr 50 mg PO DAILY Qty: 90 3RF rosuvastatin 20 mg tablet See Rx Instructions .ROUTE .COMPLEX Qty: 90 3RF Dose Instruction: TAKE 1 TABLET BY MOUTH ONCE DAILY Rx Instructions: TAKE 1 TABLET BY MOUTH ONCE DAILY Primary Care Provider: Madeline Tadeo NP Referrals: Madeline Tadeo NP, [employer] [Primary Care Provider] - Print Language: Welsh Disposition Disposition: Home, Self Care
[2024-12-29] MEDS: 0.9% Normal Saline (1000mL) 1,000 ML 1000 ML IV ×2 (16:26→17:13)
[2024-12-29 16:31] LABS: Absolute Lymphocyte Count 1.68 X10^3/uL (0.83-4.51); Basophil# 0.04 X10^3/uL; Basophil% 0.4 % (0-1); Eosinophil# 0.01 X10^3/uL; Eosinophils% 0.1 % (0-5); Hematocrit 44.8 % (40-54); Hemoglobin 15.2 g/dL (13.0-16.5); Lymphocyte # 1.68 X10^3/ul (0.83-4.51); Lymphocyte % 15.8 % (19-41); Mean Corp Hgb Conc 33.9 g/dL (32-36); Mean Corpuscular Hgb 30.5 pg (27.0-32.0); Mean Corpuscular Volume 89.8 fL (80-94); Mean Platelet Vol. 9.8 fl (6.2-12.0); Monocyte# 0.75 X10^3/uL; Monocyte% 7.1 % (0-10); NRBC Flagged by Analyzer 0 % (0-5); Neutrophil # 8.04 X10^3/uL (2.7-7.7); Neutrophil % 75.8 % (47-70); Platelet Count 248 K/mm3 (150-450); RBC Distribution Width CV 12.6 % (11.6-14.6); RBC Distribution Width SD 41.3 fl (35.1-43.9); Red Blood Count 4.99 M/mm3 (4.6-6.2); White Blood Count 10.6 K/mm3 (4.4-11.0)
[2024-12-29 16:58] LABS: Anion Gap 14 (5-15); BUN 40 mg/dL (4-19); BUN/Creat Ratio 15.9 RATIO (10-20); Calcium 9.4 mg/dL (7.6-11.0); Carbon Dioxide 22.6 mmol/L (22.0-29.0); Chloride 96 mmol/L (96-108); Creatinine, Serum 2.49 mg/dL (0.70-1.20); EST Glomerular Filtration Rate 27 (>60); Glucose 103 mg/dL (70-99); Potassium 4.2 mmol/L (3.3-5.1); Sodium Level 133 mmol/L (133-145)
--- NOTE | 2024-12-29 19:40 | RAD_ITS ---
PROCEDURE: CHEST PA AND LATERAL REASON FOR EXAM: 74-year-old male, cough. TECHNIQUE: Frontal and lateral views of the chest. COMPARISON: Chest radiograph 01/01/2022. FINDINGS: The heart size is normal. The mediastinal contour is unremarkable. Calcification of the thoracic aorta. Stable mild emphysema. No focal consolidation, pleural effusion or pneumothorax. Degenerative changes are identified within the thoracic spine. Chronic right clavicular fracture deformity. RAD/Chest PA and Lateral IMPRESSION: NO SIGNIFICANT CHANGE SINCE THE PRIOR EXAM. Reading Location: [id number]
[2024-12-29] MEDS: Ipratropium/Albuterol Sulfate 3 ML AMPUL.NEB INHALATION (19:58)
== END 2024-12-29 20:55 | disposition home or self-care (01) ==
PROVIDERS: Emergency Provider Emergency Medicine; PCP Registered Nurse; Visit Provider Emergency Medicine
DX: R11.2 Nausea with vomiting, unspecified (principal); J44.9 Chronic obstructive pulmonary disease, unspecified; E86.0 Dehydration; I25.10 Atherosclerotic heart disease of native coronary artery without angina pectoris; Z87.891 Personal history of nicotine dependence; Z79.899 Other long term (current) drug therapy; Z79.01 Long term (current) use of anticoagulants
CPT/HCPCS: 71046; 80048; 85025; 94640; 96360; 99284; A4216

== ENCOUNTER → 2025-03-20 | Outpatient (CLI) | payer MEDICARE, OTHER, SELFPAY ==
[2025-03-20 16:05] LABS: Anion Gap 10 (5-15); BUN 22 mg/dL (4-19); BUN/Creat Ratio 15.9 RATIO (10-20); Calcium,Total 9.4 mg/dL (7.6-11.0); Carbon Dioxide 25.9 mmol/L (21.0-32.0); Chloride 105 mmol/L (98-108); Creatinine, Serum 1.38 mg/dL (0.70-1.20); EST Glomerular Filtration Rate 54 (>60); Glucose 86 mg/dL (70-99); Potassium 4.2 mmol/L (3.3-5.1); Sodium Level 140 mmol/L (133-145)
== END | disposition home or self-care (01) ==
LOC: LAB 13:58
PROVIDERS: PCP Registered Nurse; Referring Provider Internal Medicine Cardiovascular Disease; Visit Provider Internal Medicine Cardiovascular Disease
DX: I10 Essential (primary) hypertension (principal); Z95.5 Presence of coronary angioplasty implant and graft
CPT/HCPCS: 36415; 80048

== ENCOUNTER → 2025-10-15 | Outpatient (CLI) | payer MEDICARE, OTHER, SELFPAY ==
--- NOTE | 2025-10-15 09:21 | CDU_ITS ---
Reason For Study Reason For Study: Carotid Disease Rt. Velocities/BP Lt. Velocities/BP Prox CCA 60/14 cm/sec. Prox CCA 104/20 cm/sec. Mid CCA 53/15 cm/sec. Mid CCA 95/29 cm/sec. Dist CCA 56/18 cm/sec. Dist CCA 84/19 cm/sec. Prox ICA 76/20 cm/sec. Prox ICA 76/14 cm/sec. Mid ICA 65/16 cm/sec. Mid ICA 65/14 cm/sec. Dist ICA 63/20 cm/sec. Dist ICA 61/22 cm/sec. Rt. ICA/CCA = 1.4. Lt. ICA/CCA = 0.8. Prox ECA 78/13 cm/sec. Prox ECA 81/11 cm/sec. Rt. Vert. 35/8 cm/sec. Lt. Vert. 47/17 cm/sec. Right Extracranial There is heterogeneous, irregular atherosclerotic plaque noted in the right common carotid artery. There is heterogeneous, irregular atherosclerotic plaque noted in the right internal carotid artery. There is intimal thickening but no significant atherosclerotic plaque noted in the right external carotid artery. Antegrade flow is noted in the right vertebral artery. Left Extracranial There is heterogeneous, irregular atherosclerotic plaque noted in the left common carotid artery. There is heterogeneous, irregular atherosclerotic plaque noted in the left internal carotid artery. There is heterogeneous, irregular atherosclerotic plaque noted in the left external carotid artery. Antegrade flow is noted in the left vertebral artery. Procedure Carotid Duplex [id number]. This is a Carotid Duplex examination using B-mode, color flow and specral Doppler. Exam performed in department. VL/Carotid Duplex Ultrasound Interpretation Summary Mild (<50%) stenosis right extracranial internal carotid. Mild (<50%) stenosis left extracranial internal carotid. Patent and antegrade vertebrals bilaterally. Ordering Physician: Juan Pablo Devlin Referring Physician: Madeline Tadeo Performed By: Caitlyn Devlin, [email or web address], RVT
== END | disposition home or self-care (01) ==
LOC: CVS 09:21
PROVIDERS: PCP Registered Nurse; Referring Provider Nurse Practitioner Family; Visit Provider Nurse Practitioner Family
DX: I65.22 Occlusion and stenosis of left carotid artery (principal); I70.1 Atherosclerosis of renal artery; I10 Essential (primary) hypertension; R42 Dizziness and giddiness; Z95.5 Presence of coronary angioplasty implant and graft
CPT/HCPCS: 93880